=== PATIENT | female | born 1985 | race Two or more races ===

== ENCOUNTER 2016-12-07 20:10 | Emergency (ER) | payer OTHER ==
[~2016-12-07] VITALS: Ht 147.3 cm; Wt 63.5 kg
[2016-12-07] MEDS ORDERED: AMOX1TAB61 PO (20:48)
[2016-12-07] MEDS ORDERED: ONDA4TAB10 SL (20:49)
--- NOTE | 2016-12-07 20:49 | PHYS DOC ---
Past Medical History Past Medical History: Anxiety, Other Additional Past Medical Histor: "kidney infection" Past Surgical History: Other Additional Past Surgical Histo: abcess to left buttock Alcohol Use: Rarely Drug Use: Marijuana Adult General Chief Complaint Chief Complaint: MULTIPLE COMPLAINTS HPI HPI Patient is a 31 year old female who is breast-feeding, complains of onset today of left breast redness, pain, swelling, with fever, and headache. Some nausea, no vomiting. Patient does not believe that she is . She is breast-feeding an 9-month-old. Today after her symptoms began, she tried pumping and expressing, warm compresses, Tylenol and ibuprofen. Her symptoms are not improving. No known allergies. Review of Systems Review of Systems Constitutional: Fever to 102 Eyes: Denies change in visual acuity, redness, or eye pain [] HENT: Denies nasal congestion or sore throat , with headache she has had some right ear pain Respiratory: Denies cough or shortness of breath [] GI: Nausea but no vomiting : Denies dysuria or hematuria [] Current Medications Current Medications Current Medications Medications (Trade) Dose Ordered Sig/Yasmany Start Time Stop Time Status Last Admin Dose Admin Amoxicillin/ Clavulanate Potassium (Augmentin 875/ 125mg) 1 tab 1X ONCE 12/07/16 21:00 12/07/16 21:01 UNV Allergies Allergies Allergies Coded Allergies Type Severity Reaction Last Updated Verified No Known Allergies Allergy Unknown 10/17/15 Yes Physical Exam Physical Exam Constitutional: Well developed, well nourished, no acute distress, non-toxic appearance. [] HENT: Normocephalic, atraumatic, bilateral external ears normal, nose normal. Right external ear, EAC, and TM normal. Eyes: conjunctiva normal, no discharge. [] Neck: Normal range of motion, no stridor. [] Cardiovascular:Heart rate regular rhythm, no murmur [] Lungs & Thorax: Bilateral breath sounds clear to auscultation [] Left breast: Breast is not engorged. There is an area on the lateral breast of erythema, warmth. Consistent with mastitis. Skin: Warm, dry, no erythema, no rash. [] Back: No tenderness, no CVA tenderness. [] Extremities: No tenderness, no cyanosis, no clubbing, ROM intact, no edema. [] Neurologic: Alert and oriented X 3, normal motor function, normal sensory function, no focal deficits noted. [] Current Patient Data Vital Signs Vital Signs Date Time Temp Pulse Resp B/P (MAP) Pulse Ox O2 Delivery O2 Flow Rate FiO2 12/07/16 20:17 98.6 93 18 111/68 (82) 99 98.6 Lab Values Laboratory Tests Test 12/07/16 19:26 POC Urine HCG, Qualitative Hcg negative (Negative) EKG EKG [] Radiology/Procedures Radiology/Procedures [] Course & Med Decision Making Course & Med Decision Making Pertinent Labs and Imaging studies reviewed. (See chart for details) 31-year-old female who is breast-feeding presents with one day of mastitis of the left breast. She is nontoxic and I believe appropriate for outpatient antibiotics. She was given her first dose in the ED. See instructions for plan. [] Dragon Disclaimer Dragon Disclaimer This electronic medical record was generated, in whole or in part, using a voice recognition dictation system. Departure Departure Impression: Primary Impression: Mastitis, left, acute Disposition: HOME, SELF-CARE Condition: STABLE Referrals: NO PCP (PCP) Patient Instructions: , Mastitis, Mastitis, [id number] Additional Instructions: Keep your breasts from becoming engorged by nursing and pumping as necessary. Warm compresses to the area of pain and redness. Ibuprofen 800 mg every 6-8 hours, acetaminophen 1000 mg every 6-8 hours, as needed for pain and fever. You may combine these medications if needed. Augmentin, antibiotic, as ordered. Take every 12 hours. Scripts Ondansetron (ZOFRAN ODT) 4 Mg Tab.rapdis 1 TAB SL Q8HRS for NAUSEA, #10 TAB Prov: CHAPIN PHILIPPE MD 12/07/16 Amoxicillin/Potassium Clav (AUGMENTIN 875-125 TABLET) 1 Each Tablet 1 TAB PO BID for mastitis, #20 TAB Prov: CHAPIN PHILIPPE MD 12/07/16 CHAPIN PHILIPPE MD Dec 07, 2016 20:49
[2016-12-07 21:00] VITALS: BP 91/49
[2016-12-07] MEDS ORDERED: AMOXICILLIN/K CLAV 875/125MG TABLET. PO ONE (21:00)
== END 2016-12-07 21:15 | disposition home or self-care (01) ==
LOC: ER 20:10
DX: N61.0 Mastitis without abscess (principal); R51 Headache; F12.10 Cannabis abuse, uncomplicated
CPT/HCPCS: 81025; 99284

== ENCOUNTER 2017-10-14 17:08 | Emergency (ER) | payer OTHER ==
[2017-10-14 17:36] LABS: BILIRUBIN,URINE NEGATIVE (NEG); CLARITY,URINE CLOUDY; COLOR,URINE YELLOW; GLUCOSE,URINE NEGATIVE (NEG); NITRITE,URINE NEGATIVE (NEG); PROTEIN,URINE NEGATIVE (NEG-TRACE)
[2017-10-14 17:38] LABS: URINE HCG POC Borderline hCG level (Negative)
[2017-10-14 17:43] LABS: BACTERIA,URINE 0 /HPF (0-FEW); SQUAMOUS EPITHELIAL CELL,UR MOD /LPF; WBC,URINE RARE /HPF (0-4)
[2017-10-14 18:05] LABS: ADD MAN DIFF? NO
[2017-10-14 18:06] LABS: BASO # 0.1 x10^3/uL (0.0-0.2); BASO % 1 % (0-3); EOS # 0.4 x10^3/uL (0.0-0.7); EOS % 4 % (0-3); HEMATOCRIT 39.5 % (36.0-47.0); HEMOGLOBIN 13.7 g/dL (12.0-15.5); LYMPH # 2.9 x10^3/uL (1.0-4.8); LYMPH % 30 % (24-48); MEAN CORPUSCULAR HEMOGLOBIN 31 pg (25-35); MEAN CORPUSCULAR HGB CONC 35 g/dL (31-37); MEAN CORPUSCULAR VOLUME 89 fL (79-100); MONO # 0.6 x10^3/uL (0.0-1.1); MONO % 6 % (0-9); NEUT # 5.9 x10^3uL (1.8-7.7); NEUT % 60 % (31-73); PLATELET COUNT 305 x10^3/uL (140-400); RED BLOOD COUNT 4.46 x10^6/uL (3.50-5.40); RED CELL DISTRIBUTION WIDTH 13.2 % (11.5-14.5); WHITE BLOOD COUNT 9.9 x10^3/uL (4.0-11.0)
[2017-10-14 18:13] LABS: ANION GAP 8 (6-14); BLOOD UREA NITROGEN 9 mg/dL (7-20); BUN/CREATININE RATIO 18 (6-20); CALCIUM 8.7 mg/dL (8.5-10.1); CARBON DIOXIDE 28 mmol/L (21-32); CHLORIDE 102 mmol/L (98-107); CREATININE 0.5 mg/dL (0.6-1.0); GLUCOSE 76 mg/dL (70-99); POTASSIUM 3.3 mmol/L (3.5-5.1); SODIUM 138 mmol/L (136-145)
[2017-10-14 18:20] LABS: ALBUMIN 3.8 g/dL (3.4-5.0); ALBUMIN/GLOBULIN RATIO 0.9 (1.0-1.7); ALK PHOS 92 U/L (46-116); ALT (SGPT) 20 U/L (14-59); AST (SGOT) 15 U/L (15-37); TOTAL BILIRUBIN 0.3 mg/dL (0.2-1.0); TOTAL PROTEIN 8.2 g/dL (6.4-8.2)
[2017-10-15 13:23] LABS: CHLAMYDIA PROBE Negative (Negative); GC PROBE Negative (Negative)
== END 2017-10-14 20:00 | disposition home or self-care (01) ==
LOC: ER 20:00
DX: O20.0 Threatened abortion (principal); Z3A.01 Less than 8 weeks gestation of pregnancy
CPT/HCPCS: 36415; 76801; 76817; 80053; 81001; 81025; 84702; 85025; 86850; 86900; 86901; 87491; 87591; 99285-25; Q0111

== ENCOUNTER 2017-10-18 16:39 | Emergency (ER) | payer OTHER ==
[2017-10-18] MEDS: HYDROcodone/APAP 7.5/325MG 1 TAB TABLET PO (17:40)
[2017-10-18] MEDS: KETOROLAC 60 MG/2 ML INJ. IM (19:10)
[2017-10-18] MEDS: MORPHINE SULFATE 10 MG/ML VIAL. IM (19:11)
== END 2017-10-18 19:58 | disposition home or self-care (01) ==
LOC: ER 16:39
DX: O03.9 Complete or unspecified spontaneous abortion without complication (principal)
CPT/HCPCS: 36415; 76817; 84702; 96372; 99285-25; J1885; J2270

== ENCOUNTER 2018-08-13 11:13 | Emergency (ER) | payer OTHER ==
[~2018-08-13] VITALS: Ht 147.3 cm; Wt 52.2 kg
[~2018-08-13 11:13] MED LIST: AMOX1TAB61 PO; ONDA4TAB10 SL; ONDA4TAB7 PO; OXYC1TAB15 PO
[2018-08-13 11:18] VITALS: BP 99/51
[2018-08-13] MEDS ORDERED: NAPROXEN 500 MG TABLET PO STA (11:31)
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
[2018-08-13] MEDS ORDERED: HYDROcodone/APAP 5/325MG 1 TAB TABLET PO ONE (12:00)
[2018-08-13] MEDS ORDERED: predniSONE 20 MG TABLET PO ONE (12:00)
[2018-08-13] MEDS ORDERED: CYCLOBENZAPRINE 10 MG TABLET. PO ONE (12:00)
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
[2018-08-13] MEDS ORDERED: DICL50TA4 PO (12:47)
[2018-08-13] MEDS ORDERED: METH4TAB2 PO (12:47)
[2018-08-13] MEDS ORDERED: CYCL10TA2 PO (12:47)
== END 2018-08-13 12:57 | disposition home or self-care (01) ==
LOC: ER 11:13
DX: S16.1XXA Strain of muscle, fascia and tendon at neck level, initial encounter (principal); M54.5 Low back pain; F41.9 Anxiety disorder, unspecified; V43.52XA Car driver injured in collision with other type car in traffic accident, initial encounter; Y93.89 Activity, other specified; Y92.410 Unspecified street and highway as the place of occurrence of the external cause; Y99.8 Other external cause status
CPT/HCPCS: 72125; 72131; 99284; J7512

== ENCOUNTER 2019-08-23 14:35 | Emergency (ER) | payer OTHER ==
[~2019-08-23] VITALS: Ht 149.9 cm; Wt 51.8 kg
[~2019-08-23 14:35] MED LIST changes: +CYCL10TA2 PO; +DICL50TA4 PO; +METH4TAB2 PO
[2019-08-23] MEDS ORDERED: methylPREDNISolone SOD SUCC PF 125 MG/2 ML VIAL. IV ONE (15:00)
[2019-08-23] MEDS ORDERED: PROCHLORPERAZINE 10 MG/2 ML VIAL. IV ONE (15:00)
[2019-08-23] MEDS ORDERED: ACETAMINOPHEN 500 MG TABLET PO ONE (15:00)
[2019-08-23] MEDS ORDERED: IV NORMAL SALINE 1000ML BAG 1,000 ML IV ONE (15:00)
[2019-08-23 15:06] VITALS: BP 111/70
[2019-08-23 15:14] LABS: BASO # 0.1 x10^3/uL (0.0-0.2); BASO % 1 % (0-3); EOS # 0.2 x10^3/uL (0.0-0.7); EOS % 3 % (0-3); HEMATOCRIT 39.9 % (36.0-47.0); HEMOGLOBIN 13.4 g/dL (12.0-15.5); LYMPH # 2.6 x10^3/uL (1.0-4.8); LYMPH % 31 % (24-48); MEAN CORPUSCULAR HEMOGLOBIN 29 pg (25-35); MEAN CORPUSCULAR HGB CONC 34 g/dL (31-37); MEAN CORPUSCULAR VOLUME 88 fL (79-100); MONO # 0.6 x10^3/uL (0.0-1.1); MONO % 7 % (0-9); NEUT # 4.7 x10^3/uL (1.8-7.7); NEUT % 58 % (31-73); PLATELET COUNT 275 x10^3/uL (140-400); RED BLOOD COUNT 4.54 x10^6/uL (3.50-5.40); RED CELL DISTRIBUTION WIDTH 13.3 % (11.5-14.5); WHITE BLOOD COUNT 8.2 x10^3/uL (4.0-11.0)
[2019-08-23 15:15] LABS: BILIRUBIN,URINE NEGATIVE (NEG); CLARITY,URINE CLEAR; COLOR,URINE YELLOW; NITRITE,URINE NEGATIVE (NEG); PROTEIN,URINE NEGATIVE (NEG-TRACE)
[2019-08-23 15:22] LABS: CALCIUM 9.1 mg/dL (8.5-10.1); CREATININE 0.8 mg/dL (0.6-1.0); GFR 82.1; POTASSIUM 3.7 mmol/L (3.5-5.1)
[2019-08-23 15:28] LABS: ALBUMIN 3.7 g/dL (3.4-5.0); ALBUMIN/GLOBULIN RATIO 0.9 (1.0-1.7); TOTAL BILIRUBIN 0.3 mg/dL (0.2-1.0); TOTAL PROTEIN 7.6 g/dL (6.4-8.2)
[2019-08-23 15:30] LABS: BACTERIA,URINE FEW /HPF (0-FEW); RBC,URINE OCC /HPF (0-2); SQUAMOUS EPITHELIAL CELL,UR MOD /LPF; WBC,URINE OCC /HPF (0-4)
--- NOTE | 2019-08-23 15:51 | PHYS DOC ---
Past Medical History Past Medical History: Kidney Infection Additional Past Medical Histor: miscarriages Past Surgical History: Other Additional Past Surgical Histo: abcess to left buttock Smoking Status: Former Smoker Alcohol Use: Sober Drug Use: None General Adult EDM: Chief Complaint: HEADACHE HPI: HPI: Patient is a 34 year old female 11 para 2, 7 miscarriages, 1 , currently 4-1/2 weeks who presents the ED today complaining of a headache intermittently for 1 week. Patient reports the headache is behind her eyes. She is also complaining of nausea, photophobia and noise sensitivity with the headache. Patient denies any vaginal bleeding. Denies any fever, denies any neck or rigidity. She states she took [id number]-[id number] remedies with no relief. Patient denies this being the worst headache in her life. Review of Systems: Review of Systems: Constitutional: Denies fever or chills. [] Eyes: Denies change in visual acuity. [] HENT: Denies nasal congestion or sore throat. [] Respiratory: Denies cough or shortness of breath. [] Cardiovascular: Denies chest pain or edema. [] GI: Denies abdominal pain, nausea, vomiting, bloody stools or diarrhea. [] : Denies dysuria. [] Musculoskeletal: Denies back pain or joint pain. [] Integument: Denies rash. [] Neurologic: Reports headache, denies focal weakness or sensory changes. [] Endocrine: Denies polyuria or polydipsia. [] Lymphatic: Denies swollen glands. [] Psychiatric: Denies depression or anxiety. [] Heart Score: Risk Factors: Risk Factors: DM, Current or recent (<one month) smoker, HTN, HLP, family history of CAD, obesity. Risk Scores: Score 0 - 3: 2.5% MACE over next 6 weeks - Discharge Home Score 4 - 6: 20.3% MACE over next 6 weeks - Admit for Clinical Observation Score 7 - 10: 72.7% MACE over next 6 weeks - Early Invasive Strategies Current Medications: Current Medications Medications (Trade) Dose Ordered Sig/Yasmany Start Time Stop Time Status Last Admin Dose Admin Acetaminophen (Tylenol) 1,000 mg 1X ONCE 08/23/19 15:00 08/23/19 15:01 DC 08/23/19 15:14 1,000 MG Methylprednisolone Sodium Succinate (SOLU-Medrol 125MG VIAL) 125 mg 1X ONCE 08/23/19 15:00 08/23/19 15:01 DC 08/23/19 15:17 125 MG Prochlorperazine Edisylate (Compazine) 10 mg 1X ONCE 08/23/19 15:00 08/23/19 15:01 DC 08/23/19 15:17 10 MG Sodium Chloride 1,000 ml @ 1,000 mls/hr 1X ONCE 08/23/19 15:00 08/23/19 15:59 08/23/19 15:15 1,000 MLS/HR Allergies: Allergies: Allergies Coded Allergies Type Severity Reaction Last Updated Verified No Known Allergies Allergy Unknown 10/17/15 Yes Physical Exam: PE: Constitutional: Well developed, well nourished, no acute distress, non-toxic kamilla earance. [] HENT: Normocephalic, atraumatic, bilateral external ears normal, oropharynx moist, no oral exudates, nose normal. [] Eyes: PERRLA, EOMI, conjunctiva normal, no discharge. [] Neck: Normal range of motion, no tenderness, supple, no stridor. [] Cardiovascular:Heart rate regular rhythm, no murmur [] Lungs & Thorax: Bilateral breath sounds clear to auscultation [] Abdomen: Bowel sounds normal, soft, no tenderness, no masses, no pulsatile masses. [] Skin: Warm, dry, no erythema, no rash. [] Back: No tenderness, no CVA tenderness. [] Extremities: No tenderness, no cyanosis, no clubbing, ROM intact, no edema. [] Neurologic: Alert and oriented X 3, normal motor function, normal sensory function, no focal deficits noted. Cranial nerves II through XII intact Psychologic: Affect normal, judgement normal, mood normal. [] Current Patient Data: Labs: Laboratory Tests Test 08/23/19 15:00 08/23/19 15:09 White Blood Count 8.2 x10^3/uL (4.0-11.0) Red Blood Count 4.54 x10^6/uL (3.50-5.40) Hemoglobin 13.4 g/dL (12.0-15.5) Hematocrit 39.9 % (36.0-47.0) Mean Corpuscular Volume 88 fL (79-100) Mean Corpuscular Hemoglobin 29 pg (25-35) Mean Corpuscular Hemoglobin Concent 34 g/dL (31-37) Red Cell Distribution Width 13.3 % (11.5-14.5) Platelet Count 275 x10^3/uL (140-400) Neutrophils (%) (Auto) 58 % (31-73) Lymphocytes (%) (Auto) 31 % (24-48) Monocytes (%) (Auto) 7 % (0-9) Eosinophils (%) (Auto) 3 % (0-3) Basophils (%) (Auto) 1 % (0-3) Neutrophils # (Auto) 4.7 x10^3/uL (1.8-7.7) Lymphocytes # (Auto) 2.6 x10^3/uL (1.0-4.8) Monocytes # (Auto) 0.6 x10^3/uL (0.0-1.1) Eosinophils # (Auto) 0.2 x10^3/uL (0.0-0.7) Basophils # (Auto) 0.1 x10^3/uL (0.0-0.2) Urine Collection Type Unknown Urine Color Yellow Urine Clarity Clear Urine pH 7.0 (<5.0-8.0) Urine Specific [place] 1.010 (1.000-1.030) Urine Protein Negative mg/dL (NEG-TRACE) Urine Glucose (UA) Negative mg/dL (NEG) Urine Ketones (Stick) Negative mg/dL (NEG) Urine Blood Negative (NEG) Urine Nitrite Negative (NEG) Urine Bilirubin Negative (NEG) Urine Urobilinogen Dipstick 1.0 mg/dL (0.2 mg/dL) Urine Leukocyte Esterase Negative (NEG) Urine RBC Occ /HPF (0-2) Urine WBC Occ /HPF (0-4) Urine Squamous Epithelial Cells Mod /LPF Urine Bacteria Few /HPF (0-FEW) Sodium Level 140 mmol/L (136-145) Potassium Level 3.7 mmol/L (3.5-5.1) Chloride Level 102 mmol/L (98-107) Carbon Dioxide Level 27 mmol/L (21-32) Anion Gap 11 (6-14) Blood Urea Nitrogen 11 mg/dL (7-20) Creatinine 0.8 mg/dL (0.6-1.0) Estimated GFR (Cockcroft-Gault) 82.1 BUN/Creatinine Ratio 14 (6-20) Glucose Level 82 mg/dL (70-99) Calcium Level 9.1 mg/dL (8.5-10.1) Total Bilirubin 0.3 mg/dL (0.2-1.0) Aspartate Amino Transferase (AST) 14 U/L (15-37) L Alanine Aminotransferase (ALT) 17 U/L (14-59) Alkaline Phosphatase 63 U/L (46-116) Total Protein 7.6 g/dL (6.4-8.2) Albumin 3.7 g/dL (3.4-5.0) Albumin/Globulin Ratio 0.9 (1.0-1.7) L POC Urine HCG, Qualitative Hcg positive (Negative) Laboratory Tests 08/23/19 15:00 Laboratory Tests 08/23/19 15:00 Vital Signs: Vital Signs Date Time Temp Pulse Resp B/P (MAP) Pulse Ox O2 Delivery O2 Flow Rate FiO2 08/23/19 14:42 98.0 84 12 124/58 (80) 98 Room Air 98.0 EKG: EKG: [] Radiology/Procedures: Radiology/Procedures: [] Course & Med Decision Making: Course & Med Decision Making Pertinent Labs and Imaging studies reviewed. (See chart for details) This is a 34-year-old female patient currently 4 and half weeks presenting to the ED today complaining of a headache intermittently for week. Also complaining of nausea, photosensitivity with a headache. Denies this being the worst headache in her life. CBC, CMP-no acute findings. Urine analysis negative for infection UDS is negative Patient was given 1 L of IV fluids Solu-Medrol and Compazine symptoms are better. F/u with OBGYN in the course of this week Dragon Disclaimer: Dragon Disclaimer: This electronic medical record was generated, in whole or in part, using a voice recognition dictation system. Departure Departure Impression: Primary Impression: Migraine headache Qualified Codes: G43.009 - Migraine without aura, not intractable, without status migrainosus Disposition: HOME, SELF-CARE Condition: STABLE Referrals: NO PCP (PCP) VELMA BENAVIDES Jr, MD follow up in 1 week Patient Instructions: Migraine Headache, [id number] Additional Instructions: You were evaluated in the emergency room for migraine headache in . Please stay hydrated. Take the prescribed medications as ordered. Follow-up with your own doctor in 1 week or the provided OBGYN Scripts Prochlorperazine Maleate (Compazine) 10 Mg Tablet 1 TAB PO Q6HRS, #21 TAB 0 Refills Prov: SLAVA RICHTER APRN 08/23/19 SLAVA RICHTER APRN Aug 23, 2019 15:51
[2019-08-23 15:55] LABS: BARBITURATES NEG (NEG); BENZODIAZEPINES NEG (NEG); CANNABINOIDS NEG (NEG); COCAINE NEG (NEG); METHADONE NEG (NEG); OPIATES NEG (NEG); PHENCYCLIDINE NEG (NEG)
[2019-08-23 15:56] LABS: AMPHETAMINE/METHAMPHETAMINE NEG (NEG)
[2019-08-23] MEDS ORDERED: PROC10TA57 PO (16:13)
== END 2019-08-23 16:51 | disposition home or self-care (01) ==
LOC: ER 14:35
DX: O29.41 Spinal and epidural anesthesia induced headache during pregnancy, first trimester (principal); G43.909 Migraine, unspecified, not intractable, without status migrainosus; H53.149 Visual discomfort, unspecified; N15.9 Renal tubulo-interstitial disease, unspecified; Z98.890 Other specified postprocedural states; Z87.891 Personal history of nicotine dependence; Z3A.01 Less than 8 weeks gestation of pregnancy
CPT/HCPCS: 36415; 80053; 80307; 81001; 81025; 85025; 96374; 96375; 99284; J0780; J2930; J7030

== ENCOUNTER 2019-09-06 21:53 | Emergency (ER) | payer SELFPAY ==
[~2019-09-06] VITALS: Ht 149.9 cm; Wt 52.2 kg
[~2019-09-06 21:53] MED LIST changes: +PROC10TA57 PO
[2019-09-06 22:16] LABS: BILIRUBIN,URINE NEGATIVE (NEG); CLARITY,URINE CLEAR; COLOR,URINE YELLOW; NITRITE,URINE NEGATIVE (NEG); PROTEIN,URINE NEGATIVE (NEG-TRACE)
--- NOTE | 2019-09-06 22:19 | PHYS DOC ---
Past Medical History Past Medical History: Kidney Infection Additional Past Medical Histor: miscarriages Past Surgical History: Other Additional Past Surgical Histo: abcess to left buttock Smoking Status: Former Smoker Alcohol Use: Sober Drug Use: None General Adult EDM: Chief Complaint: FLANK PAIN HPI: HPI: 34-year-old female who a6 who is approximate 6 weeks presents with a chief complaint of left flank pain. Patient states pain started around 1400 hrs. sudden onset. Pain in left flank with radiation to left pelvic region. Patient also states she has had urinary frequency but denies any dysuria or vaginal bleeding, nausea or vomiting. Patient states she's had similar pain in the past related to a kidney infection. Patient took ibuprofen this afternoon wi th no relief. Review of Systems: Review of Systems: Constitutional: Denies fever or chills. [] Eyes: Denies change in visual acuity. [] HENT: Denies nasal congestion or sore throat. [] Respiratory: Denies cough or shortness of breath. [] Cardiovascular: Denies chest pain or edema. [] GI: Denies abdominal pain, nausea, vomiting, bloody stools or diarrhea. [] : Denies dysuria. [Positive flank pain} positive pelvic pain, No vaginal discharge, No vaginal bleeding Musculoskeletal: Denies r joint pain. [positive back pain] Integument: Denies rash. [] Neurologic: Denies headache, focal weakness or sensory changes. [] Endocrine: Denies polyuria or polydipsia. [] Lymphatic: Denies swollen glands. [] Psychiatric: Denies depression or anxiety. [] Heart Score: Risk Factors: Risk Factors: DM, Current or recent (<one month) smoker, HTN, HLP, family history of CAD, obesity. Risk Scores: Score 0 - 3: 2.5% MACE over next 6 weeks - Discharge Home Score 4 - 6: 20.3% MACE over next 6 weeks - Admit for Clinical Observation Score 7 - 10: 72.7% MACE over next 6 weeks - Early Invasive Strategies Allergies: Allergies: Allergies Coded Allergies Type Severity Reaction Last Updated Verified No Known Allergies Allergy Unknown 10/17/15 Yes Physical Exam: PE: Constitutional: Well developed, well nourished, no acute distress, non-toxic appearance. [appears mildly uncomfortable] HENT: Normocephalic, atraumatic, bilateral external ears normal, oropharynx moist, no oral exudates, nose normal. [] Eyes: PERRLA, EOMI, conjunctiva normal, no discharge. [] Neck: Normal range of motion, no tenderness, supple, no stridor. [] Cardiovascular:Heart rate regular rhythm, no murmur [] Lungs & Thorax: Bilateral breath sounds clear to auscultation [] Abdomen: Bowel sounds normal, soft, no tenderness, no masses, no pulsatile masses. [] Skin: Warm, dry, no erythema, no rash. [] Back: No tenderness, no CVA tenderness. [] Extremities: No tenderness, no cyanosis, no clubbing, ROM intact, no edema. [] Neurologic: Alert and oriented X 3, normal motor function, normal sensory function, no focal deficits noted. [] Psychologic: Affect normal, judgement normal, mood normal. [] Current Patient Data: Labs: Laboratory Tests Test 09/06/19 22:09 POC Urine HCG, Qualitative Hcg positive (Negative) EKG: EKG: [] Radiology/Procedures: Radiology/Procedures: [] Course & Med Decision Making: Course & Med Decision Making Pertinent Labs and Imaging studies reviewed. (See chart for details) []Patient was evaluated for chief complaint. Workup consisted of laboratory analysis and radiologic imaging. Results reviewed and discussed with patient patient was found have a potassium 2.8. Patient was treated with 40 mEq by ronda th. Patient will be discharged home in prescription potassium. Patient's pain was treated with Kevil with improvement. Patient had ultrasound of the pelvis which showed an IUP approximate 6 weeks. No ectopic no ovarian torsion. Patient will be discharged home with potassium and Kevil and Macrobid. Patient advised to continue vitamins follow up with OB or primary care physician. Latricia Disclaimer: Latricia Disclaimer: This electronic medical record was generated, in whole or in part, using a voice recognition dictation system. Departure Departure Impression: Primary Impression: Flank pain Additional Impressions: Hypokalemia UTI (urinary tract infection) Disposition: HOME, SELF-CARE Condition: STABLE Referrals: NO PCP (PCP) Patient Instructions: Back Pain in , Flank Pain, Hypokalemia, Urinary Tract Infection Scripts Hydrocodone/Apap 5-325 (NORCO 5-325 TABLET) 1 Each Tablet 1 TAB PO TID, #10 TAB Prov: JUVENAL BRUCE DO 09/07/19 Potassium Chloride (Potassium Chloride) 20 Meq Tablet.er 40 MEQ PO 1X for 7 Days, #7 TAB.SR Prov: JUVENAL BRUCE DO 09/07/19 Nitrofurantoin Monohyd/M-Cryst (MACROBID 100 MG CAPSULE) 100 Mg Capsule 1 CAP PO BID for 5 Days, #10 CAP 0 Refills Prov: JUVENAL BRUCE DO 09/07/19 JUVENAL BRUCE DO Sep 06, 2019 22:19
[2019-09-06] MEDS ORDERED: HYDROcodone/APAP 5/325MG 1 TAB TABLET PO ONE (22:30)
[2019-09-06 22:38] LABS: BACTERIA,URINE MANY /HPF (0-FEW); SQUAMOUS EPITHELIAL CELL,UR FEW /LPF
[2019-09-06 23:21] LABS: BASO % 1 % (0-3); EOS # 0.1 x10^3/uL (0.0-0.7); EOS % 1 % (0-3); HEMATOCRIT 39.3 % (36.0-47.0); HEMOGLOBIN 13.2 g/dL (12.0-15.5); LYMPH # 2.1 x10^3/uL (1.0-4.8); LYMPH % 28 % (24-48); MEAN CORPUSCULAR HEMOGLOBIN 30 pg (25-35); MEAN CORPUSCULAR HGB CONC 34 g/dL (31-37); MEAN CORPUSCULAR VOLUME 88 fL (79-100); MONO # 0.6 x10^3/uL (0.0-1.1); MONO % 8 % (0-9); NEUT # 4.5 x10^3/uL (1.8-7.7); NEUT % 62 % (31-73); PLATELET COUNT 272 x10^3/uL (140-400); RED BLOOD COUNT 4.46 x10^6/uL (3.50-5.40); RED CELL DISTRIBUTION WIDTH 14.2 % (11.5-14.5); WHITE BLOOD COUNT 7.4 x10^3/uL (4.0-11.0)
[2019-09-07 00:01] VITALS: BP 121/74
--- NOTE | 2019-09-07 00:14 | RAD ---
Study: US OB TRANSVAG DATE: 09/06/2019 10:59 PM INDICATION: Pelvic pain in the setting of a known . COMPARISON: 10/18/2017 TECHNIQUE: Transvaginal ultrasonography of the pelvis was performed. Color Doppler and duplex were utilized as appropriate. FINDINGS: The uterus measures 10 x 5.8 x 5.3 cm. Intrauterine gestational sac measuring 1.96 x 1.50 x 1.45 cm. Yolk sac measures 0.37 cm. heart rate measures 119 bpm. Small pole measured at 0.29 cm for an estimated gestational age of 5 weeks 6 days. Gestational sac morphology and the volume of amniotic fluid is within the broad range of normal. The left ovary measures 3 x 1.6 x 1.5 cm and the right ovary 2.7 x 1.9 x 1.6 cm. Normal Doppler flow is maintained to both ovaries. No free fluid seen within the deep pelvis. IMPRESSION: 1. Single live intrauterine with an estimated gestational age by ultrasound of 5 weeks 6 days. No complicating features. 2. Unremarkable right and left ovaries. No free fluid seen within the pelvis. Electronically signed by: JACK PRAKASH MD (09/07/2019 12:11 AM) [id number]
[2019-09-07 00:22] LABS: ALBUMIN 3.7 g/dL (3.4-5.0); ALBUMIN/GLOBULIN RATIO 1.1 (1.0-1.7); CALCIUM 8.9 mg/dL (8.5-10.1); CREATININE 0.7 mg/dL (0.6-1.0); GFR 95.8; TOTAL BILIRUBIN 0.8 mg/dL (0.2-1.0); TOTAL PROTEIN 7.2 g/dL (6.4-8.2)
[2019-09-07 00:28] LABS: POTASSIUM 2.8 mmol/L (3.5-5.1)
[2019-09-07] MEDS ORDERED: POTASSIUM CHLORIDE 20 MEQ TABLET.ER. PO ONE (00:45)
[2019-09-07] MEDS ORDERED: NITR100C62 PO (00:49)
[2019-09-07] MEDS ORDERED: POTA20TA83 PO (00:49)
[2019-09-07] MEDS ORDERED: HYDR-3164 PO (00:49)
== END 2019-09-07 00:59 | disposition home or self-care (01) ==
LOC: ER 21:53
DX: O23.41 Unspecified infection of urinary tract in pregnancy, first trimester (principal); E87.6 Hypokalemia; R10.9 Unspecified abdominal pain; N15.9 Renal tubulo-interstitial disease, unspecified; Z87.891 Personal history of nicotine dependence; Z98.890 Other specified postprocedural states
CPT/HCPCS: 36415; 76817; 80053; 81001; 81025; 84702; 85025; 87086; 99284

== ENCOUNTER 2020-01-17 19:39 | Observation (INO) | payer OTHER ==
[~2020-01-17 19:39] MED LIST changes: +HYDR-3164 PO; +NITR100C62 PO; +POTA-163 PO
[2020-01-17] MEDS ORDERED: IV RINGERS,LACTATED 1000ML 1,000 ML IV SCH (19:40)
[2020-01-17 20:04] LABS: BILIRUBIN,URINE NEGATIVE (NEG); CLARITY,URINE CLEAR; COLOR,URINE YELLOW; NITRITE,URINE NEGATIVE (NEG); PROTEIN,URINE NEGATIVE (NEG-TRACE)
[2020-01-17 20:13] LABS: AMPHETAMINE/METHAMPHETAMINE POS (NEG); BACTERIA,URINE MODERATE /HPF (0-FEW); BARBITURATES NEG (NEG); BENZODIAZEPINES NEG (NEG); CANNABINOIDS NEG (NEG); COCAINE NEG (NEG); METHADONE NEG (NEG); OPIATES NEG (NEG); PHENCYCLIDINE NEG (NEG); RBC,URINE OCC /HPF (0-2); SQUAMOUS EPITHELIAL CELL,UR MANY /LPF
[2020-01-17] MEDS ORDERED: hydrOXYzine IM 50 MG/ML VIAL IM ONE (20:45)
[2020-01-17] MEDS ORDERED: hydrOXYzine 25 MG TABLET PO ONE (21:00)
== END 2020-01-17 21:50 | disposition home or self-care (01) ==
LOC: 3 SO LND 19:39
PROVIDERS: ADMIT Obstetrics & Gynecology; ATTEND Obstetrics & Gynecology
DX: O26.892 Other specified pregnancy related conditions, second trimester (principal); R10.30 Lower abdominal pain, unspecified; O99.89 Other specified diseases and conditions complicating pregnancy, childbirth and the puerperium; M54.9 Dorsalgia, unspecified; Z3A.25 25 weeks gestation of pregnancy; Z79.899 Other long term (current) drug therapy
CPT/HCPCS: 80307; 81001; 87086; G0378; G0379

== ENCOUNTER 2021-06-16 15:45 | Inpatient (IN) | payer OTHER ==
[~2021-06-16] VITALS: Ht 147.3 cm; Wt 54.8 kg
[~2021-06-16 15:45] MED LIST changes: +CYCL10TA19 PO; -CYCL10TA2 PO
[2021-06-16] MEDS ORDERED: TETRACAINE 0.5% OPHTH SOLUTION 4ML BOTTLE. OU ONE (16:30)
[2021-06-16 17:11] LABS: BASO # 0.1 x10^3/uL (0.0-0.2); BASO % 1 % (0-3); EOS # 0.2 x10^3/uL (0.0-0.7); EOS % 2 % (0-3); HEMATOCRIT 37.2 % (36.0-47.0); HEMOGLOBIN 12.9 g/dL (12.0-15.5); LYMPH # 2.2 x10^3/uL (1.0-4.8); LYMPH % 32 % (24-48); MEAN CORPUSCULAR HEMOGLOBIN 30 pg (25-35); MEAN CORPUSCULAR HGB CONC 35 g/dL (31-37); MEAN CORPUSCULAR VOLUME 86 fL (79-100); MONO # 0.4 x10^3/uL (0.0-1.1); MONO % 6 % (0-9); NEUT # 4.1 x10^3/uL (1.8-7.7); NEUT % 59 % (31-73); PLATELET COUNT 318 x10^3/uL (140-400); RED BLOOD COUNT 4.31 x10^6/uL (3.50-5.40); RED CELL DISTRIBUTION WIDTH 13.5 % (11.5-14.5)
--- NOTE | 2021-06-16 17:14 | PHYS DOC ---
Past Medical History Past Medical History: No Pertinent History, Kidney Infection Additional Past Medical Histor: miscarriages Past Surgical History: Other Additional Past Surgical Histo: abcess to left buttock Smoking Status: Current Every Day Smoker Additional Information: QUIT SMONKING & VAPING 1 MONTH AGO. Alcohol Use: Occasionally Additional Information: PATIENT REPORTS "I'M 9 MONTHS SOBER." Drug Use: None Social History Narrative: "9 MONTHS SOBER" General Adult EDM: Chief Complaint: VISION PROBLEM HPI: HPI: Patient is a 36 year old female presents to the emergency department in [facility] complaining of waking up at approximately 10:00 this morning with painless vision loss to the right eye. Patient does report a "slight headache "stating she has had a headache ever since she was evaluated at [facility] 3 days ago this past Wednesday after having a seizure, falling and striking her head on the ground. Patient states she had "tracers "that she describes as "squiggly lines "across her field of vision that she experienced while she was at [facility] emergency department that seem to spontaneously resolve, she was then discharged back to the [facility]. Patient reports she woke up earlier this morning seeing the same tracer she experienced when she was at [facility], took a nap then woke up at 10:00 this morning with symptoms that brought her to the emergency department today. 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 Patient denies dizziness, denies decreased vision of the left eye however reports she can still see things close. Patient reports she is supposed to wear glasses however does not. Patient states she is currently being treated with an antibiotic for trichomonas, does not take medications for seizures as she reports this past seizure on Wednesday is her fifth seizure she has had since 2009. Patient denies other physical complaints or physical concerns. Review of Systems: Review of Systems: 14 body systems of review of systems have been reviewed. See HPI for pertinent positives and negative responses, otherwise all other systems are negative, nonpertinent or noncontributory. Constitutional: Negative except as outlined in HPI above. Skin: Negative except as outlined in HPI above. Eyes: Negative except as outlined in HPI above. HENT: Negative except as outlined in HPI above. Respiratory: Negative except as outlined in HPI above. Cardiovascular: Negative except as outlined in HPI above. GI: Negative except as outlined in HPI above. : Negative except as outlined in HPI above. Musculoskeletal: Negative except as outlined in HPI above. Integument: Negative except as outlined in HPI above. Neurologic: Negative except as outlined in HPI above. Endocrine: Negative except as outlined in HPI above. Lymphatic: Negative except as outlined in HPI above. Psychiatric: Negative except as outlined in HPI above. Heart Score: C/O Chest Pain: No Risk Factors: Risk Factors: DM, Current or recent (<one month) smoker, HTN, HLP, family history of CAD, obesity. Risk Scores: Score 0 - 3: 2.5% MACE over next 6 weeks - Discharge Home Score 4 - 6: 20.3% MACE over next 6 weeks - Admit for Clinical Observation Score 7 - 10: 72.7% MACE over next 6 weeks - Early Invasive Strategies Current Medications: Current Medications Medications (Trade) Dose Ordered Sig/Yasmany Start Time Stop Time Status Last Admin Dose Admin Tetracaine HCl (Tetracaine) 1 drop 1X ONCE 06/16/21 16:30 06/16/21 16:40 DC 06/16/21 16:49 1 DROP Allergies: Allergies: Allergies Coded Allergies Type Severity Reaction Last Updated Verified No Known Allergies Allergy Unknown 10/17/15 Yes Physical Exam: PE: Constitutional: Well developed, well nourished, no acute distress, non-toxic appearance. 36-year-old female in no apparent distress. Is in shackles and handcuffs per [facility] officer at bedside. HENT: Normocephalic, atraumatic. Eyes: Conjunctiva normal, no discharge. Pupils 4 mm and reactive to light bilaterally, visual acuity: OD/blind, OS 20/200, OU 20/200, positive red light reflex for bedside exam, IOP right eye 17/17, left eye 15/16. No response to confrontation of the right eye during examination. Neck: Normal range of motion, no stridor. Cardiovascular: No cyanosis appreciated, distal cap refill less than 2 seconds. Lungs & Thorax: Patient is in no respiratory distress, no audible adventitious lung sounds appreciated. Abdomen: Nontender, no abnormalities noted. Skin: Warm, dry, no erythema, no rash. Back: No tenderness, no deformities. Extremities: No tenderness, no cyanosis, no clubbing, ROM intact, no edema. Neurologic: Alert and oriented X 3, normal motor function, normal sensory function, no focal deficits noted. Psychologic: Affect normal, judgement normal, mood normal. Current Patient Data: Labs: Laboratory Tests Test 06/16/21 16:43 06/16/21 16:59 POC Urine HCG, Qualitative Hcg negative (Negative) White Blood Count 7.0 x10^3/uL (4.0-11.0) Red Blood Count 4.31 x10^6/uL (3.50-5.40) Hemoglobin 12.9 g/dL (12.0-15.5) Hematocrit 37.2 % (36.0-47.0) Mean Corpuscular Volume 86 fL (79-100) Mean Corpuscular Hemoglobin 30 pg (25-35) Mean Corpuscular Hemoglobin Concent 35 g/dL (31-37) Red Cell Distribution Width 13.5 % (11.5-14.5) Platelet Count 318 x10^3/uL (140-400) Neutrophils (%) (Auto) 59 % (31-73) Lymphocytes (%) (Auto) 32 % (24-48) Monocytes (%) (Auto) 6 % (0-9) Eosinophils (%) (Auto) 2 % (0-3) Basophils (%) (Auto) 1 % (0-3) Neutrophils # (Auto) 4.1 x10^3/uL (1.8-7.7) Lymphocytes # (Auto) 2.2 x10^3/uL (1.0-4.8) Monocytes # (Auto) 0.4 x10^3/uL (0.0-1.1) Eosinophils # (Auto) 0.2 x10^3/uL (0.0-0.7) Basophils # (Auto) 0.1 x10^3/uL (0.0-0.2) Laboratory Tests 06/16/21 16:59 Vital Signs: Vital Signs Date Time Temp Pulse Resp B/P (MAP) Pulse Ox O2 Delivery O2 Flow Rate FiO2 06/16/21 15:53 98.7 80 17 134/84 (101) 100 Room Air 98.7 EKG: EKG: EKG performed at 1646 by ED nursing staff shows a normal sinus rhythm without other ectopy, heart rate 58 bpm, parable 0.188, QT 0.388, no acute STEMI, no ACS, no acute ischemia appreciated, EKG interpreted by ED attending physician Dr. Mcintyre. Radiology/Procedures: Radiology/Procedures: REASON: Acute painless vision loss right eye PROCEDURE: CT HEAD WO CONTRAST CT scan of the head without contrast 06/16/2021 Clinical History: Acute right vision loss. Technique: Unenhanced, contiguous, 5 mm axial sections were obtained through the head. One or more of the following individualized dose reduction techniques were uti lized for this study: 1. Automated exposure control. 2. Adjustment of the mA and/or kV according to patient size. 3. Use of iterative reconstruction technique. Findings: The ventricles and sulci are within normal limits in size and configuration. No area of abnormal attenuation is seen involving the brain parenchyma. No extra-axial fluid collection is noted. No skull fracture is seen. The visualized orbits are within normal limits. A 8mm mucous retention cyst is involving the right maxillary sinus. Impression: No acute intracranial abnormality is seen. Electronically signed by: Alvaro Fernandez MD (06/16/2021 5:14 PM) [id number] Course & Med Decision Making: Course & Med Decision Making Pertinent Labs and Imaging studies reviewed. (See chart for details) 36-year-old female, vital signs reviewed, presents emergency department concerning painless loss of vision of the right eye at approximately 10 AM. Physical examination concerning for retinal artery occlusion of right eye versus retinal detachment of right eye versus other ophthalmologic dyscrasia. Will order CBC, CMP, ESR, CRP, PT/PTT. CT head without contrast. Will consult with ophthalmology. At 1650 discussed patient case and ED work-up with on-call sound ranging crewmember Luis Luna who stated he would be unable to see patient in his office because patient is in PD custody, recommended patient be transferred to ophthalmology. At 1700 called and discussed patient case and ED work-up with transfer triage nurse Hayley kyle states will relay information to ophthalmology on-call and return call for transfer. At 1750 discussed patient case with religion instructor Dr. New who recommended patient be evaluated by neurology, did not accept transfer to [facility]. States will see in consult with neurology excepting transfer. At 1751 placed paged to neurologist on-call. At 1800 discussed patient case and ED work-up with neurologist Dr. Rey who recommended patient be started on high-dose steroid protocol 100 mg x 6 days with decreased to 80 mg x 1, 60 mg x 1, 40 mg x 1, 20 mg x 1. Also recommended patient have outpatient MRI and MRA to evaluate vision loss. Recommended ophthalmology consult. At at 1805 consulted with transfer triage nurse Hayley who states will relay information to on-call neurology specialist at [facility] and will return phone call. At 1830 called and discussed patient case with [facility] transfer line, unable to accept patient in transfer to [facility] facilities At 1845 discussed patient case and ED work-up with [facility] neurologist Dr. Fritz who recommended patient have CTA head and neck and reconsult. At 1945 discussed patient case and ED work-up along with CT a head and neck results with Dr. Fritz who recommends patient be admitted to the hospital for MRI/MRA evaluation related to vision loss. Is unable to accept patient in transfer at at this time. Called and discussed patient case and ED work-up with inpatient management physician Dr. Myles, Dr. Myles accepts patient for admission, requests consult of neurology and ophthalmology, discussed with Dr. Shar Rey's recommendation of steroids. Discussed with patient admission to hospital for ongoing evaluation of vision loss. Upon reevaluation of the patient, patient has no further vision loss, denies pain or discomfort. Patient is amenable to admission planning. Dragon Disclaimer: Dragon Disclaimer: This electronic medical record was generated, in whole or in part, using a voice recognition dictation system. NIHSS Stroke Scale NIH Stroke Scale: NIH Stroke Scale Response (Comments) Value Level of Consciousness: 0 Alert/Responsive 0 LOC Questions: 0 Answers both correctly 0 LOC Commands: 0 Performs both tasks 0 Best Gaze: 0 Normal 0 Visual: 2 Complete hemianopia 2 Facial Palsy: 0 Normal, symmetrical 0 Motor - Left Arm 0 No drift 0 Motor - Right Arm 0 No drift 0 Motor - Left Leg 0 No drift 0 Motor: Right Leg 0 No drift 0 Limb Ataxia: 0 Absent 0 Sensory: 0 No loss 0 Best Language: 0 Normal 0 Dysathria: 0 Normal 0 Extinction and Inattention: 0 Normal 0 Total 2 Departure Departure Impression: Primary Impression: Sudden visual loss, right eye Disposition: ADMITTED INPATIENT Admitting Physician: DEMIAN (Admit to Dr. Myles to medical surgical unit.) Condition: GUARDED Referrals: NO PCP (PCP) ERIKA MCARTHUR APRN Jun 16, 2021 17:14
--- NOTE | 2021-06-16 17:17 | RAD ---
CT scan of the head without contrast 06/16/2021 Clinical History: Acute right vision loss. Technique: Unenhanced, contiguous, 5 mm axial sections were obtained through the head. One or more of the following individualized dose reduction techniques were utilized for this study: 1. Automated exposure control. 2. Adjustment of the mA and/or kV according to patient size. 3. Use of iterative reconstruction technique. Findings: The ventricles and sulci are within normal limits in size and configuration. No area of abn ormal attenuation is seen involving the brain parenchyma. No extra-axial fluid collection is noted. N o skull fracture is seen. The visualized orbits are within normal limits. A 8mm mucous retention cyst is involving the right maxillary sinus. Impression: No acute intracranial abnormality is seen. Electronically signed by: Alvaro Fernandez MD (06/16/2021 5:14 PM) [id number]
[2021-06-16 17:24] LABS: CALCIUM 8.7 mg/dL (8.5-10.1); CREATININE 0.7 mg/dL (0.6-1.0); GFR 94.7; POTASSIUM 3.9 mmol/L (3.5-5.1)
[2021-06-16 17:30] LABS: ALBUMIN 3.8 g/dL (3.4-5.0); ALBUMIN/GLOBULIN RATIO 0.9 (1.0-1.7); C-REACTIVE PROTEIN 2.9 mg/L (0-3.3); TOTAL BILIRUBIN 0.2 mg/dL (0.2-1.0); TOTAL PROTEIN 8.2 g/dL (6.4-8.2)
[2021-06-16] MEDS ORDERED: IOHEXOL 300 MG/ML 100ML VIAL. IV ONE (19:00)
[2021-06-16 19:11] LABS: PROTHROMBIN TIME PATIENT 12.4 SEC (11.7-14.0)
[2021-06-16] MEDS ORDERED: CONTRAST GIVEN. MC PRN (19:15)
--- NOTE | 2021-06-16 19:29 | RAD ---
Exam: CTA head and neck INDICATION: Sudden painless vision loss, right eye TECHNIQUE: Sequential axial images through the head and neck obtained following the administration of 75 mL of Isovue-370 IV contrast. Sagittal and coronal reformatted images were reconstructed from the axial data and reviewed. 3-D reformatted images were reconstructed from the axial data and reviewed. Exposure: One or more of the following in the visualized dose reduction techniques were utilized for this examination: 1. Automated exposure control 2. Adjustment of the MA and/or KV according to patient size 3. Use of iterative of reconstructive technique Comparisons: CT head without contrast same day FINDINGS: CTA NECK: Visual is portions of thoracic aorta are unremarkable. Standard three-vessel arch anatomy. Right common carotid artery is patent without evidence of stenosis, occlusion or aneurysm. Cervical s egment right internal carotid artery is patent without evidence of stenosis, occlusion or aneurysm. Left common carotid artery is patent without evidence of stenosis, occlusion or aneurysm. Cervical se gment of the left internal carotid artery is patent without evidence of stenosis, occlusion or aneury sm. Right vertebral artery is patent to the basilar confluence without evidence of stenosis, occlusion or aneurysm. Left vertebral artery is patent to basilar confluence without evidence of stenosis, occlusion or aneu rysm. Visualized paraspinal soft tissues are unremarkable. CTA HEAD: Intracranial segments of the right internal carotid artery are patent without evidence of stenosis, o cclusion or aneurysm. Right MCA is patent. Right IVANIA is patent. Intracranial segments of the left internal carotid artery are patent without evidence of stenosis, oc clusion or aneurysm. MCA is patent. Left IVANIA is patent. Basilar artery is patent without evidence of stenosis, occlusion or aneurysm. relationship mgr are patent bilater ally. Visualized portions of the dural venous sinuses are patent. IMPRESSION: Patent intracranial and cervical arterial vasculature without evidence of stenosis, occlusion or aneu rysm. Electronically signed by: Rylie Harris MD (06/16/2021 7:27 PM) [facility] H[facility]ITALCHRISTOPHER
[2021-06-16] MEDS ORDERED: predniSONE 20 MG TABLET PO ONE (20:30)
[2021-06-17] MEDS ORDERED: ACETAMINOPHEN 500 MG TABLET PO ONE (04:30)
--- NOTE | 2021-06-17 06:17 | EKG ---
[facility] [address] [place] [address] Test Date: 2021-06-16 Test Time: 16:46:01 Pat Name: FLACO ECHEVERRIA Department: Room: Gender: F Casework Manager: : 1985 Requested By: ERIKA MCARTHUR Order Number: [id number] Reading MD: Measurements Intervals [place] Rate: 58 P: 56 VT: 188 QRS: 66 QRSD: 84 T: 68 QT: 392 QTc: 388 Interpretive Statements SINUS RHYTHM NORMAL ECG RI6.02 No previous ECG available for comparison
--- NOTE | 2021-06-17 08:06 | PDOC1 ---
History and Physical Date of Admission Date of Admission DATE: 06/17/21 TIME: 08:02 Identification/Chief Complaint Chief Complaint Vision loss Source Source: Patient History of Present Illness History of Present Illness Ms Rodriguez is a 36 year old female w/ PMHx seizures presents to the emergency department in [facility] complaining of waking up at approximately 10:00 on 06/16/2021 in the morning with vision loss to the right eye. She does wear glasses at baseline and has been incarcerated since March 2021 and has not had her glasses. She has complained of left frontal and temporal headache since a fall out of her bed on 06/13/2021. She does not recall the circumstances of the fall she remembers just waking up on the floor. She is in a low lying cot in an individual halfway cell no other individuals were present.. Patient did not share if there was shaking observed prior to her awakening concerning for a seizure. After the initial fall she states was evaluated at [facility] on 06/13/21. She noted "squiggles and floaters" in her right eye that resolved and she was then discharged back to the [facility]. Patient notes she has had seizures since 2011. She feels her seizures are related to a prolonged ICU stay on the ventilator in [facility] in 2009 at which she cannot recall any the details. She has never been seen by a neurologist outside the hospital setting and has never been on antiepileptics. Other than a headache in vision loss in her right field she denies any nausea and vomiting no chest pain no shortness of breath no numbness or tingling. She does note when she was initially evaluated at [facility] on 06/13/2021 she did have diffuse right-sided weakness with upper ext remity and lower extremity weakness but that has since resolved after observation in the emergency department at that time. She is never noted any numbness or tingling loss of bowel or bladder function or loss of limb function. At baseline she wears glasses but she has not worn them in some time since she has been in halfway. On 06/16/21 ED nurse practitioner contacted telephone directory deliverer ophthalmology office, Dr. Luna at 1650 who recommended patient be transferred to ophthalmology for urgent evaluation ED contacted [facility] transfer center and notes at 1750 discussed patient case with button broacher Dr. New who recommended patient be evaluated by neurology. Dr New reportedly recommended contacting neurology for evaluation. ED contacted telephone directory deliverer Neurologist Dr. Rey who recommended patient be started on high-dose steroid protocol 100 mg x 6 days with decreased to 80 mg x 1, 60 mg x 1, 40 mg x 1, 20 mg x 1. Also recommended patient have outpatient MRI and MRA to evaluate vision loss. Recommended ophthalmology consult. ED nurse practitioner then contacted [facility] [id number], unable to accept patient in transfer to [facility] facilities ED nurse practitioner notes he called [facility] at [address] Fritz who recommended patient have CTA head and neck and reconsult. CT results above. WBC 7, Hb 12.9, platelets 318, sed rate 28, NA 138, K3.9, BUN 10, CR 0.7, LFTs within normal laboratory limits, INR 0.9, urine test negative CT head with no acute abnormality CTA neck with no arterial occlusion ED nurse practitioner at [address] Fritz at [facility] who recommends patient be admitted to the hospital for MRI/MRA evaluation related to vision loss. [facility] was unable to accommodate a transfer and the nurse practitioner contacted my partner, Dr. Myles who accepted patient for admission. Patient seen bedside with Dr. Snyder from neurology. I have contacted Dr. Luna and he noted Dr. Ratliff button broacher in his office may be able to accommodate a visit using the requirement for a consult today. Past Surgical History Past Surgical History abcess to left buttock Family History Family History: Hypertension Social History Smoke: 2 packs per day ALCOHOL: heavy (Quit 12/2020) Current Problem List Problem List Problems Medical Problems: (1) Sudden visual loss, right eye Status: Acute Current Medications Current Medications Current Medications Tetracaine HCl (Tetracaine) 1 drop 1X ONCE OU Last administered on 06/16/21at 16:49; Start 06/16/21 at 16:30; Stop 06/16/21 at 16:40; Status DC Iohexol (Omnipaque 300 Mg/ml) 75 ml 1X ONCE IV Last administered on 06/16/21at 19:14; Start 06/16/21 at 19:00; Stop 06/16/21 at 19:02; Status DC Info (CONTRAST GIVEN -- Rx MONITORING) 1 each PRN DAILY PRN MC SEE COMMENTS; Start 06/16/21 at 19:15; Stop 06/18/21 at 19:14 Prednisone (Prednisone) 100 mg 1X ONCE PO Last administered on 06/16/21at 21:34; Start 06/16/21 at 20:30; Stop 06/16/21 at 20:31; Status DC Acetaminophen (Tylenol) 1,000 mg 1X ONCE PO Last administered on 06/17/21at 04:22; Start 06/17/21 at 04:30; Stop 06/17/21 at 04:31; Status DC Active Scripts Active [place] 5-325 Tablet (Acetaminophen/Hydrocodone Bitart) 1 Each Tablet 1 Tab PO TID Potassium Chloride 20 Meq Tablet.er 40 Meq PO 1X 7 Days Macrobid 100 Mg Capsule (Nitrofurantoin Monohyd/M-Cryst) 100 Mg Capsule 1 Cap PO BID 5 Days Compazine (Prochlorperazine Maleate) 10 Mg Tablet 1 Tab PO Q6HRS Medrol (Methylprednisolone) 4 Mg Tab.ds.pk 1 Pkg PO UD Diclofenac Sodium 50 Mg Tablet.dr 1 Tab PO BID Cyclobenzaprine Hcl 10 Mg Tablet 1 Tab PO TID Zofran (Ondansetron Hcl) 4 Mg Tablet 4 Mg PO PRN TID PRN nausea/vomiting Percocet 5-325 Mg Tablet (Oxycodone/Acetaminophen) 1 Each Tablet 1 Each PO PRN TID PRN pain Zofran Odt (Ondansetron) 4 Mg Tab.rapdis 1 Tab SL Q8HRS Augmentin 875-125 Tablet (Amoxicillin/Potassium Clav) 1 Each Tablet 1 Tab PO BID Allergies Allergies: Coded Allergies: No Known Allergies (Verified Allergy, Unknown, 10/17/15) ROS General: No: Chills, Night Sweats, Fatigue, Malaise, Appetite, Other PSYCHOLOGICAL ROS: No: Anxiety, Behavioral Disorder, Concentration difficultie, Decreased libido, Depression, Disorientation, Hallucinations, Hostility, Irritablity, Memory difficulties, Mood Swings, Obsessive thoughts, Physical abuse, Sexual abuse, Sleep disturbances, Suicidal ideation, Other Eyes: Yes Blurry vision, Yes Decreased vision, Yes Loss of vision, Yes Uses contacts; No Double vision, No Dry eyes, No Excessive tearing, No Eye Pain, No Itchy Eyes, No Photophobia, No Scotomata, No Uses glasses, No Other HEENT: YES: Heacaches, Visual Changes; No: Hearing change, Nasal congestion, Nasal discharge, Oral lesions, Sinus pain, Sore Throat, Epistaxis, Sneezing, Snoring, Tinnitus, Vertigo, Vocal changes, Other ALLERGY AND IMMUNOLOGY: No: Hives, Insect Bite Sensitivity, Itchy/Watery Eyes, Nasal Congestion, Post Nasal Drip, Seasonal Allergies, Other Hematological and Lymphatic: No: Bleeding Problems, Blood Clots, Blood Transfusions, Brusing, Night Sweats, Pallor, Swollen Lymph Nodes, Other ENDOCRINE: No: Breast Changes, Galactorrhea, Hair Pattern Changes, Hot Flashes, Malaise/lethargy, Mood Swings, Palpitations, Polydipsia/polyuria, Skin Changes, Temperature Intolerance, Unexpected Weight Changes, Other Breast: No New/Changing Breast Lumps, No Nipple changes, No Nipple discharge, No Other Respiratory: No: Cough, Hemoptysis, Orthopnea, Pleuritic Pain, Shortness of breath, SOB with excertion, Sputum Changes, Stridor, Tachypnea, Wheezing, Other Cardiovascular: No Chest Pain, No Palpitations, No Orthopnea, No Paroxysmal Noc. Dyspnea, No Edema, No Lt Headedness, No Other Gastrointestinal: No Nausea, No Vomiting, No Abdominal Pain, No Diarrhea, No Constipation, No Melena, No Hematochezia, No Other Genitourinary: No Dysuria, No Frequency, No Incontinence, No Hematuria, No Retention, No Discharge, No Urgency, No Pain, No Flank Pain, No Other, No , No , No , No , No , No , No Musculoskeletal: No Gait Disturbance, No Joint Pain, No Joint Stiffness, No Joint Swelling, No Muscle Pain, No Muscular Weakness, No Pain In:, No Swelling In:, No Other Neurological: No Behavorial Changes, No Bowel/Bladder ControlChng, No Confusion, No Dizziness, No Gait Disturbance, No Headaches, No Impaired Coord/balance, No Memory Loss, No Numbness/Tingling, No Seizures, No Speech Problems, No Tremors, No Visual Changes, No Weakness, No Other Skin: No Dry Skin, No Eczema, No Hair Changes, No Lumps, No Mole Changes, No Mottling, No Nail Changes, No Pruritus, No Rash, No Skin Lesion Changes, No Other, No Acne Physical Exam General: Alert, Oriented X3, Cooperative, No acute distress HEENT: Atraumatic, PERRLA, Mucous membr. moist/pink, Other (Right eye light and dark perceived. Left eye ) Lungs: Clear to auscultation, Normal air movement Heart: S1S2, RRR, no thrills, no rubs, no gallops, no murmurs Abdomen: Normal bowel sounds, Soft, No tenderness, No hepatosplenomegaly, No masses Extremities: No clubbing, No cyanosis, No edema, Normal pulses, No tenderness/swelling Skin: No rashes, No breakdown, No significant lesion Neuro: Normal gait, Normal speech, Strength at 5/5 X4 ext, Normal tone, Sensation intact, Cranial nerves 3-12 NL, Reflexes 2+ Psych/Mental Status: Mental status NL, Mood NL Vitals Vitals Vital Signs Date Time Temp Pulse Resp B/P (MAP) Pulse Ox O2 Delivery O2 Flow Rate FiO2 06/17/21 06:43 58 15 96/53 (67) 98 Room Air 06/16/21 21:59 98.5 98.5 Labs Labs Laboratory Tests Test 06/16/21 16:43 06/16/21 16:50 06/16/21 16:59 Bedside Urine HCG, Qualitative Hcg negative (Negative) Prothrombin Time 12.4 SEC (11.7-14.0) Prothromb Time International Ratio 0.9 (0.8-1.1) Activated Partial Thromboplast Time 34 SEC (24-38) White Blood Count 7.0 x10^3/uL (4.0-11.0) Red Blood Count 4.31 x10^6/uL (3.50-5.40) Hemoglobin 12.9 g/dL (12.0-15.5) Hematocrit 37.2 % (36.0-47.0) Mean Corpuscular Volume 86 fL (79-100) Mean Corpuscular Hemoglobin 30 pg (25-35) Mean Corpuscular Hemoglobin Concent 35 g/dL (31-37) Red Cell Distribution Width 13.5 % (11.5-14.5) Platelet Count 318 x10^3/uL (140-400) Neutrophils (%) (Auto) 59 % (31-73) Lymphocytes (%) (Auto) 32 % (24-48) Monocytes (%) (Auto) 6 % (0-9) Eosinophils (%) (Auto) 2 % (0-3) Basophils (%) (Auto) 1 % (0-3) Neutrophils # (Auto) 4.1 x10^3/uL (1.8-7.7) Lymphocytes # (Auto) 2.2 x10^3/uL (1.0-4.8) Monocytes # (Auto) 0.4 x10^3/uL (0.0-1.1) Eosinophils # (Auto) 0.2 x10^3/uL (0.0-0.7) Basophils # (Auto) 0.1 x10^3/uL (0.0-0.2) Erythrocyte Sedimentation Rate 28 (0-25) Sodium Level 138 mmol/L (136-145) Potassium Level 3.9 mmol/L (3.5-5.1) Chloride Level 102 mmol/L (98-107) Carbon Dioxide Level 27 mmol/L (21-32) Anion Gap 9 (6-14) Blood Urea Nitrogen 10 mg/dL (7-20) Creatinine 0.7 mg/dL (0.6-1.0) Estimated GFR (Cockcroft-Gault) 94.7 BUN/Creatinine Ratio 14 (6-20) Glucose Level 90 mg/dL (70-99) Calcium Level 8.7 mg/dL (8.5-10.1) Total Bilirubin 0.2 mg/dL (0.2-1.0) Aspartate Amino Transf (AST/SGOT) 15 U/L (15-37) Alanine Aminotransferase (ALT/SGPT) 17 U/L (14-59) Alkaline Phosphatase 61 U/L (46-116) C-Reactive Protein, Quantitative 2.9 mg/L (0-3.3) Total Protein 8.2 g/dL (6.4-8.2) Albumin 3.8 g/dL (3.4-5.0) Albumin/Globulin Ratio 0.9 (1.0-1.7) Laboratory Tests Test 06/16/21 16:43 06/16/21 16:50 06/16/21 16:59 Bedside Urine HCG, Qualitative Hcg negative (Negative) Prothrombin Time 12.4 SEC (11.7-14.0) Prothromb Time International Ratio 0.9 (0.8-1.1) Activated Partial Thromboplast Time 34 SEC (24-38) White Blood Count 7.0 x10^3/uL (4.0-11.0) Red Blood Count 4.31 x10^6/uL (3.50-5.40) Hemoglobin 12.9 g/dL (12.0-15.5) Hematocrit 37.2 % (36.0-47.0) Mean Corpuscular Volume 86 fL (79-100) Mean Corpuscular Hemoglobin 30 pg (25-35) Mean Corpuscular Hemoglobin Concent 35 g/dL (31-37) Red Cell Distribution Width 13.5 % (11.5-14.5) Platelet Count 318 x10^3/uL (140-400) Neutrophils (%) (Auto) 59 % (31-73) Lymphocytes (%) (Auto) 32 % (24-48) Monocytes (%) (Auto) 6 % (0-9) Eosinophils (%) (Auto) 2 % (0-3) Basophils (%) (Auto) 1 % (0-3) Neutrophils # (Auto) 4.1 x10^3/uL (1.8-7.7) Lymphocytes # (Auto) 2.2 x10^3/uL (1.0-4.8) Monocytes # (Auto) 0.4 x10^3/uL (0.0-1.1) Eosinophils # (Auto) 0.2 x10^3/uL (0.0-0.7) Basophils # (Auto) 0.1 x10^3/uL (0.0-0.2) Erythrocyte Sedimentation Rate 28 (0-25) Sodium Level 138 mmol/L (136-145) Potassium Level 3.9 mmol/L (3.5-5.1) Chloride Level 102 mmol/L (98-107) Carbon Dioxide Level 27 mmol/L (21-32) Anion Gap 9 (6-14) Blood Urea Nitrogen 10 mg/dL (7-20) Creatinine 0.7 mg/dL (0.6-1.0) Estimated GFR (Cockcroft-Gault) 94.7 BUN/Creatinine Ratio 14 (6-20) Glucose Level 90 mg/dL (70-99) Calcium Level 8.7 mg/dL (8.5-10.1) Total Bilirubin 0.2 mg/dL (0.2-1.0) Aspartate Amino Transf (AST/SGOT) 15 U/L (15-37) Alanine Aminotransferase (ALT/SGPT) 17 U/L (14-59) Alkaline Phosphatase 61 U/L (46-116) C-Reactive Protein, Quantitative 2.9 mg/L (0-3.3) Total Protein 8.2 g/dL (6.4-8.2) Albumin 3.8 g/dL (3.4-5.0) Albumin/Globulin Ratio 0.9 (1.0-1.7) Images Images CT head: The ventricles and sulci are within normal limits in size and configuration. No area of abnormal attenuation is seen involving the brain parenchyma. No extra- axial fluid collection is noted. No skull fracture is seen. The visualized orbits are within normal limits. A 8mm mucous retention cyst is involving the right maxillary sinus. Impression: No acute intracranial abnormality is seen. CT ANGIOGRAPHY HEAD AND NECK CTA NECK: Visual is portions of thoracic aorta are unremarkable. Standard three-vessel arch anatomy. Right common carotid artery is patent without evidence of stenosis, occlusion or aneurysm. Cervical segment right internal carotid artery is patent without evidence of stenosis, occlusion or aneurysm. Left common carotid artery is patent without evidence of stenosis, occlusion or aneurysm. Cervical segment of the left internal carotid artery is patent without evidence of stenosis, occlusion or aneurysm. Right vertebral artery is patent to the basilar confluence without evidence of stenosis, occlusion or aneurysm. Left vertebral artery is patent to basilar confluence without evidence of stenosis, occlusion or aneurysm. Visualized paraspinal soft tissues are unremarkable. CTA HEAD: Intracranial segments of the right internal carotid artery are patent without evidence of stenosis, occlusion or aneurysm. Right MCA is patent. Right IVANIA is patent. Intracranial segments of the left internal carotid artery are patent without evidence of stenosis, occlusion or aneurysm. MCA is patent. Left IVANIA is patent. Basilar artery is patent without evidence of stenosis, occlusion or aneurysm. principal technical architect are patent bilaterally. Visualized portions of the dural venous sinuses are patent. IMPRESSION: Patent intracranial and cervical arterial vasculature without evidence of stenosis, occlusion or aneurysm. VTE Prophylaxis Ordered VTE Prophylaxis Devices: No VTE Pharmacological Prophylaxi: No Assessment/Plan Assessment/Plan A/P: Right diminished vision -difficult to assess for retinal detachment on my visual examination. Possible retinal arteriolar venous occlusion. Discussed with ophthalmology for exam today. Given abnormal visual examination MRI and MRA or bit have been ordered by neurology appropriately though these are recommended for outpatient that cannot be accommodated in her currently incarcerated position and apparently no transfer beds were available for emergency ophthalmology examination due to the COVID-19 pandemic. History of seizures -for past 10 years never had formal evaluation or been on antiepileptic medications. She notes at least 5 seizures that people have witnessed that she can recall. Fall - per patient and staff had a seizure partially witnessed. FEN - Regular diet PPX - SCDs FULL CODE Dispo - inpatient for above Justifications for Admission Other Justification LAINE SAGE MD Jun 17, 2021 08:06
[2021-06-17] MEDS ORDERED: predniSONE 20 MG TABLET PO SCH (09:00)
--- NOTE | 2021-06-17 10:42 | PDOC2 ---
NEUROLOGY CONSULT Date of Service DOS: DATE: 06/17/21 TIME: 10:31 Reason for Consult Reason for Consult: Vision loss in the right eye Referring Physician Referring Physician: Dr. Funez Source Source: Chart review, Patient History of Present Illness History of Present Illness The patient is a 36-year-old right-handed female inmate of [facility] who woke up yesterday morning at about 10 AM with complete vision loss in the right eye. 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 She says that she was on the ventilator for several w eeks. She says that she has had a total of 5 seizures. The last 1 was on 06/13. She was in longterm and says that she fell and hit her head. She was taken to the [facility]. While there she was noticing squiggles and floaters in the right eye but says that nothing was done about it. She has never seen a neurologist for the seizures. The visual symptoms did resolve until yesterday morning when she had the blindness. In the [place] emergency room yesterday, SUMAN Yao called Dr. Luna optjo who recommended transfer to ophthalmology for urgent evaluation. He then called the transfer center and Dr. New refused transfer and recommended evaluation by neurology. I spoke to SUMAN Yao at 17:57. He noted that the patient had painless vision loss, normal eye movements, and reactive pupil, normal intraocular pressures. I felt that this was very atypical for organic monocular vision loss. I recommended a sedimentation rate, which was 28, and CT angiogram, which was negative. I recommended prednisone 100 mg daily for 6 days, tapering over the next 4 days for a total of 10 days. I recommended ophthalmology appointment as an outpatient. I recommended MRI of the brain with attention to the orbits, with and without contrast, as an outpatient. I did not see the need for admission to the hospital. After SUMAN Yao finished his call to me, he called [facility] hospital for transfer, who refused, then [facility], and discussed with Dr. Fritz who recommended CT angiogram of the head and neck, which, I had already recommended. Then SUMAN Yao called back Dr. Fritz who refused transfer and recommended MRI/MRA. Again, note, that this neurologist had already recommended an MRI, but not the MRA. Patient has now been admitted to the hospital. Past Medical History CENTRAL NERVOUS SYSTEM: Seizure, Other (Head injury) Past Surgical History Past Surgical History: No pertinent history Family History Family History: No pertinent hx Social History Social History Single, denies alcohol, tobacco, street drugs Current Medications Current Medications Current Medications Tetracaine HCl (Tetracaine) 1 drop 1X ONCE OU Last administered on 06/16/21at 16:49; Start 06/16/21 at 16:30; Stop 06/16/21 at 16:40; Status DC Iohexol (Omnipaque 300 Mg/ml) 75 ml 1X ONCE IV Last administered on 06/16/21at 19:14; Start 06/16/21 at 19:00; Stop 06/16/21 at 19:02; Status DC Info (CONTRAST GIVEN -- Rx MONITORING) 1 each PRN DAILY PRN MC SEE COMMENTS; Start 06/16/21 at 19:15; Stop 06/18/21 at 19:14 Prednisone (Prednisone) 100 mg 1X ONCE PO Last administered on 06/16/21at 21:34; Start 06/16/21 at 20:30; Stop 06/16/21 at 20:31; Status DC Acetaminophen (Tylenol) 1,000 mg 1X ONCE PO Last administered on 06/17/21at 04:22; Start 06/17/21 at 04:30; Stop 06/17/21 at 04:31; Status DC Prednisone (Prednisone) 100 mg DAILY PO Last administered on 06/17/21at 09:38; Start 06/17/21 at 09:00; Stop 06/22/21 at 08:59 Active Scripts Active [place] 5-325 Tablet (Acetaminophen/Hydrocodone Bitart) 1 Each Tablet 1 Tab PO TID Potassium Chloride 20 Meq Tablet.er 40 Meq PO 1X 7 Days Macrobid 100 Mg Capsule (Nitrofurantoin Monohyd/M-Cryst) 100 Mg Capsule 1 Cap PO BID 5 Days Compazine (Prochlorperazine Maleate) 10 Mg Tablet 1 Tab PO Q6HRS Medrol (Methylprednisolone) 4 Mg Tab.ds.pk 1 Pkg PO UD Diclofenac Sodium 50 Mg Tablet.dr 1 Tab PO BID Cyclobenzaprine Hcl 10 Mg Tablet 1 Tab PO TID Zofran (Ondansetron Hcl) 4 Mg Tablet 4 Mg PO PRN TID PRN nausea/vomiting Percocet 5-325 Mg Tablet (Oxycodone/Acetaminophen) 1 Each Tablet 1 Each PO PRN TID PRN pain Zofran Odt (Ondansetron) 4 Mg Tab.rapdis 1 Tab SL Q8HRS Augmentin 875-125 Tablet (Amoxicillin/Potassium Clav) 1 Each Tablet 1 Tab PO BID Allergies Allergies: Coded Allergies: No Known Allergies (Verified Allergy, Unknown, 10/17/15) ROS Review of System Negative for fever, chills, weight loss, shortness of breath, chest pain, indigestion, hematochezia, melena, and dysuria. Full 14-point review of systems is negative. Physical Exam Physical Examination General: Well-developed, well-nourished, female, in no acute distress HEENT: Normocephalic andatraumatic. Tympanic membranes clear.Temporal arteriespulsatile and nontender.Fundoscopic exam unremarkable Neck: Supple without bruit, no meningismus Musculoskeletal: Stability:see neurologic. Gait exam:see neurologic. Tone:see neurologic.Strength:see neurologic. Neurological: Mental Status:intact, orientation, memory, attention span/concentration, language, fund of knowledge normal. Cranial Nerves:Pupils equal and reactive to light, extraocular movements areintact. Has no vision in the right eye. Facial sensation is normal. There is no facial asymmetry. Vestibulo-ocular reflex is intact. Palate elevates and tongue protrudes in midline. All other cranial related problems are negative except as mentioned before.Reflexes:2+ and symmetric with flexor plantar responses. Motor:5/5 strength with normal tone and bulk. Coordination:Finger-nose finger and gijj-[id number] testing are normal. Rapid alternating movements and fine finger movements are intact. Gait:Not tested. Sensory:Normal pinprick, vibration, light touch, proprioception. Vitals VITALS Vital Signs Date Time Temp Pulse Resp B/P (MAP) Pulse Ox O2 Delivery O2 Flow Rate FiO2 06/17/21 06:43 58 15 96/53 (67) 98 Room Air 06/16/21 21:59 98.5 98.5 Labs Labs Laboratory Tests Test 06/16/21 16:43 06/16/21 16:50 06/16/21 16:59 Bedside Urine HCG, Qualitative Hcg negative (Negative) Prothrombin Time 12.4 SEC (11.7-14.0) Prothromb Time International Ratio 0.9 (0.8-1.1) Activated Partial Thromboplast Time 34 SEC (24-38) White Blood Count 7.0 x10^3/uL (4.0-11.0) Red Blood Count 4.31 x10^6/uL (3.50-5.40) Hemoglobin 12.9 g/dL (12.0-15.5) Hematocrit 37.2 % (36.0-47.0) Mean Corpuscular Volume 86 fL (79-100) Mean Corpuscular Hemoglobin 30 pg (25-35) Mean Corpuscular Hemoglobin Concent 35 g/dL (31-37) Red Cell Distribution Width 13.5 % (11.5-14.5) Platelet Count 318 x10^3/uL (140-400) Neutrophils (%) (Auto) 59 % (31-73) Lymphocytes (%) (Auto) 32 % (24-48) Monocytes (%) (Auto) 6 % (0-9) Eosinophils (%) (Auto) 2 % (0-3) Basophils (%) (Auto) 1 % (0-3) Neutrophils # (Auto) 4.1 x10^3/uL (1.8-7.7) Lymphocytes # (Auto) 2.2 x10^3/uL (1.0-4.8) Monocytes # (Auto) 0.4 x10^3/uL (0.0-1.1) Eosinophils # (Auto) 0.2 x10^3/uL (0.0-0.7) Basophils # (Auto) 0.1 x10^3/uL (0.0-0.2) Erythrocyte Sedimentation Rate 28 (0-25) Sodium Level 138 mmol/L (136-145) Potassium Level 3.9 mmol/L (3.5-5.1) Chloride Level 102 mmol/L (98-107) Carbon Dioxide Level 27 mmol/L (21-32) Anion Gap 9 (6-14) Blood Urea Nitrogen 10 mg/dL (7-20) Creatinine 0.7 mg/dL (0.6-1.0) Estimated GFR (Cockcroft-Gault) 94.7 BUN/Creatinine Ratio 14 (6-20) Glucose Level 90 mg/dL (70-99) Calcium Level 8.7 mg/dL (8.5-10.1) Total Bilirubin 0.2 mg/dL (0.2-1.0) Aspartate Amino Transf (AST/SGOT) 15 U/L (15-37) Alanine Aminotransferase (ALT/SGPT) 17 U/L (14-59) Alkaline Phosphatase 61 U/L (46-116) C-Reactive Protein, Quantitative 2.9 mg/L (0-3.3) Total Protein 8.2 g/dL (6.4-8.2) Albumin 3.8 g/dL (3.4-5.0) Albumin/Globulin Ratio 0.9 (1.0-1.7) Laboratory Tests Test 06/16/21 16:43 06/16/21 16:50 06/16/21 16:59 Bedside Urine HCG, Qualitative Hcg negative (Negative) Prothrombin Time 12.4 SEC (11.7-14.0) Prothromb Time International Ratio 0.9 (0.8-1.1) Activated Partial Thromboplast Time 34 SEC (24-38) White Blood Count 7.0 x10^3/uL (4.0-11.0) Red Blood Count 4.31 x10^6/uL (3.50-5.40) Hemoglobin 12.9 g/dL (12.0-15.5) Hematocrit 37.2 % (36.0-47.0) Mean Corpuscular Volume 86 fL (79-100) Mean Corpuscular Hemoglobin 30 pg (25-35) Mean Corpuscular Hemoglobin Concent 35 g/dL (31-37) Red Cell Distribution Width 13.5 % (11.5-14.5) Platelet Count 318 x10^3/uL (140-400) Neutrophils (%) (Auto) 59 % (31-73) Lymphocytes (%) (Auto) 32 % (24-48) Monocytes (%) (Auto) 6 % (0-9) Eosinophils (%) (Auto) 2 % (0-3) Basophils (%) (Auto) 1 % (0-3) Neutrophils # (Auto) 4.1 x10^3/uL (1.8-7.7) Lymphocytes # (Auto) 2.2 x10^3/uL (1.0-4.8) Monocytes # (Auto) 0.4 x10^3/uL (0.0-1.1) Eosinophils # (Auto) 0.2 x10^3/uL (0.0-0.7) Basophils # (Auto) 0.1 x10^3/uL (0.0-0.2) Erythrocyte Sedimentation Rate 28 (0-25) Sodium Level 138 mmol/L (136-145) Potassium Level 3.9 mmol/L (3.5-5.1) Chloride Level 102 mmol/L (98-107) Carbon Dioxide Level 27 mmol/L (21-32) Anion Gap 9 (6-14) Blood Urea Nitrogen 10 mg/dL (7-20) Creatinine 0.7 mg/dL (0.6-1.0) Estimated GFR (Cockcroft-Gault) 94.7 BUN/Creatinine Ratio 14 (6-20) Glucose Level 90 mg/dL (70-99) Calcium Level 8.7 mg/dL (8.5-10.1) Total Bilirubin 0.2 mg/dL (0.2-1.0) Aspartate Amino Transf (AST/SGOT) 15 U/L (15-37) Alanine Aminotransferase (ALT/SGPT) 17 U/L (14-59) Alkaline Phosphatase 61 U/L (46-116) C-Reactive Protein, Quantitative 2.9 mg/L (0-3.3) Total Protein 8.2 g/dL (6.4-8.2) Albumin 3.8 g/dL (3.4-5.0) Albumin/Globulin Ratio 0.9 (1.0-1.7) Images Images CTA head and neck INDICATION: Sudden painless vision loss, right eye TECHNIQUE: Sequential axial images through the head and neck obtained following the administration of 75 mL of Isovue-370 IV contrast. Sagittal and coronal reformatted images were reconstructed from the axial data and reviewed. 3-D reformatted images were reconstructed from the axial data and reviewed. Exposure: One or more of the following in the visualized dose reduction techniques were utilized for this examination: 1. Automated exposure control 2. Adjustment of the MA and/or KV according to patient size 3. Use of iterative of reconstructive technique Comparisons: CT head without contrast same day FINDINGS: CTA NECK: Visual is portions of thoracic aorta are unremarkable. Standard three-vessel arch anatomy. Right common carotid artery is patent without evidence of stenosis, occlusion or aneurysm. Cervical segment right internal carotid artery is patent without evidence of stenosis, occlusion or aneurysm. Left common carotid artery is patent without evidence of stenosis, occlusion or aneurysm. Cervical segment of the left internal carotid artery is patent without evidence of stenosis, occlusion or aneurysm. Right vertebral artery is patent to the basilar confluence without evidence of stenosis, occlusion or aneurysm. Left vertebral artery is patent to basilar confluence without evidence of stenosis, occlusion or aneurysm. Visualized paraspinal soft tissues are unremarkable. CTA HEAD: Intracranial segments of the right internal carotid artery are patent without evidence of stenosis, occlusion or aneurysm. Right MCA is patent. Right IVANIA is patent. Intracranial segments of the left internal carotid artery are patent without evidence of stenosis, occlusion or aneurysm. MCA is patent. Left IVANIA is patent. Basilar artery is patent without evidence of stenosis, occlusion or aneurysm. tier over are patent bilaterally. Visualized portions of the dural venous sinuses are patent. IMPRESSION: Patent intracranial and cervical arterial vasculature without evidence of stenosis, occlusion or aneurysm. CT scan of the head without contrast 06/16/2021 Clinical History: Acute right vision loss. Technique: Unenhanced, contiguous, 5 mm axial sections were obtained through the head. One or more of the following individualized dose reduction techniques were utilized for this study: 1. Automated exposure control. 2. Adjustment of the mA and/or kV according to patient size. 3. Use of iterative reconstruction technique. Findings: The ventricles and sulci are within normal limits in size and configuration. No area of abnormal attenuation is seen involving the brain parenchyma. No extra-axial fluid collection is noted. No skull fracture is seen. The visualized orbits are within normal limits. A 8mm mucous retention cyst is involving the right maxillary sinus. Impression: No acute intracranial abnormality is seen. Assessment/Plan Assessment/Plan Impression: Painless vision loss in the right eye, no other findings History of seizures going on for 12 years, a total of 5 in her life History of severe head injury on a ventilator for a month Recommendations: MRI of the brain with attention to the orbits, I do not see a need for MR angiogram as the CT angiogram was entirely normal Ophthalmology evaluation Steroids, 100 mg prednisone daily for 6 days, then taper over 4 days Holding on starting anticonvulsants Consider outpatient electroencephalogram Discussed with Dr. Funez Thank you for letting me help with the patient's care. TATY MERA MD Jun 17, 2021 10:42
[2021-06-17] MEDS ORDERED: GADOTERATE 5 MMOL/10ML VIAL. IVP ONE (13:30)
[2021-06-17 15:00] VITALS: BP 117/65
--- NOTE | 2021-06-17 15:38 | RAD ---
EXAM: Brain and orbital MRI without and with contrast. HISTORY: Right eye blindness. TECHNIQUE: Multiplanar, multisequence magnetic resonance imaging of the brain and orbits was performe d without and with contrast. COMPARISON: CT angiogram dated 06/16/2021. FINDINGS: There is no restricted diffusion to suggest acute or subacute infarction. There is no mass effect or midline shift. There is no susceptibility effect to suggest hemorrhage. There is no hydroce phalus. There is no suspicious white matter lesion. There are small right maxillary and sphenoid sinus mucous retention cysts. The mastoid air cells are clear. There are normal flow voids within the cerebral vessels. There is no suspicious calvarial lesi on. The orbits are unremarkable. No suspicious enhancing lesion is seen. IMPRESSION: No acute intracranial finding or finding correlate with right-sided blindness. Electronically signed by: Valencia Reinoso MD (06/17/2021 3:35 PM) [id number]
[2021-06-17] MEDS ORDERED: oxyCODONE/APAP 5/325 1 TAB TABLET PO PRN (16:15)
[2021-06-17] MEDS ORDERED: PRED20TA PO (17:38)
[2021-06-17] MEDS ORDERED: LAMO25TA9 PO (17:51)
--- NOTE | 2021-06-17 17:53 | SNU/HH DC ---
DISCHARGE ORDERS DISCHARGE INFORMATION: DISCHARGE DATE: Jun 17, 2021 FINAL DIAGNOSIS Problems Medical Problems: (1) Sudden visual loss, right eye Status: Acute CONDITION ON DISCHARGE: Stable CODE STATUS: Code Status: Full POST DISCHARGE ORDERS: ACTIVITY ORDERS: No restrictions, Resume previous activity, Activity as tolerated WEIGHT BEARING STATUS: No restrictions, Full weight bearing, As tolerated DIET AFTER DISCHARGE: Regular WOUND/INCISION CARE: No wound care needed CHECKS AFTER DISCHARGE: CHECKS AFTER DISCHARGE: Check your Temp as needed FOLLOW-UP: PHYSICIAN FOLLOW-UP: [facility] ADDITIONAL FOLLOW-UP: PRIMARY CARE PROVIDER NEEDED TREATMENT/EQUIPMENT ORDERS: ADAPTIVE EQUIPMENT NEEDED: None DISCHARGE MEDICATIONS: Home Meds Active Scripts Lamotrigine (LAMOTRIGINE) 25 Mg Tablet, 1 TAB PO BID for PTSD for 30 Days, #60 TAB 2 Refills Prov:LAINE SAGE MD 06/17/21 Prednisone (PREDNISONE) 20 Mg Tablet, 100 MG PO DAILY for Inflammation for 5 Days, #25 TAB Prov:LAINE SAGE MD 06/17/21 Discontinued Scripts Hydrocodone/Apap 5-325 (NORCO 5-325 TABLET) 1 Each Tablet, 1 TAB PO TID, #10 TAB Prov:JUVENAL BRUCE I DO 09/07/19 Potassium Chloride (Potassium Chloride) 20 Meq Tablet.er, 40 MEQ PO 1X for 7 Days, #7 TAB.SR Prov:JUVENAL BRUCE I DO 09/07/19 Nitrofurantoin Monohyd/M-Cryst (MACROBID 100 MG CAPSULE) 100 Mg Capsule, 1 CAP PO BID for 5 Days, #10 CAP 0 Refills Prov:JUVENAL BRUCE I DO 09/07/19 Prochlorperazine Maleate (Compazine) 10 Mg Tablet, 1 TAB PO Q6HRS, #21 TAB 0 Refills Prov:SLAVA RICHTER [employer]OR E[employer]ING 08/23/19 Methylprednisolone (MEDROL) 4 Mg Tab.ds.pk, 1 PKG PO UD, #1 PKG Prov:SLAVA RICHTER [employer] 08/13/18 Diclofenac Sodium (DICLOFENAC SODIUM) 50 Mg Tablet.dr, 1 TAB PO BID, #60 TAB 1 Refill Prov:SLAVA RICHTER [employer]ING 08/13/18 Cyclobenzaprine Hcl (CYCLOBENZAPRINE HCL) 10 Mg Tablet, 1 TAB PO TID, #30 TAB Prov:SLAVA RICHTER [employer]ING 08/13/18 Ondansetron Hcl (ZOFRAN) 4 Mg Tablet, 4 MG PO PRN TID PRN for NAUSEA, #20 nausea/vomiting Prov:TATY ROMERO DO 10/18/17 Oxycodone/Apap 5-325 (PERCOCET 5-325 MG TABLET ) 1 Each Tablet, 1 EACH PO PRN TID PRN for PAIN, #20 TAB pain Prov:TATY ROMERO DO 10/18/17 Ondansetron (ZOFRAN ODT) 4 Mg Tab.rapdis, 1 TAB SL Q8HRS for NAUSEA, #10 TAB Prov:CHAPIN PHILIPPE MD 12/07/16 Amoxicillin/Potassium Clav (AUGMENTIN 875-125 TABLET) 1 Each Tablet, 1 TAB PO BID for mastitis, #20 TAB Prov:CHAPIN PHILIPPE MD 12/07/16 LAINE SAGE MD Jun 17, 2021 17:53
--- NOTE | 2021-06-17 17:59 | PDOC3 ---
Discharge Summary Visit Information Date of Admission: Jun 16, 2021 Date of Discharge: Jun 17, 2021 Admitting Diagnosis: Right eye visual loss Final Diagnosis Problems Medical Problems: (1) Sudden visual loss, right eye Status: Acute Brief Hospital Course Allergies Allergies Coded Allergies Type Severity Reaction Last Updated Verified No Known Allergies Allergy Unknown 10/17/15 Yes Vital Signs Vital Signs Date Time Temp Pulse Resp B/P (MAP) Pulse Ox O2 Delivery O2 Flow Rate FiO2 06/17/21 17:12 Room Air 06/17/21 15:00 98.3 90 117/65 (82) 98 98.3 06/17/21 13:17 19 Lab Results Laboratory Tests Test 06/16/21 16:43 06/16/21 16:50 06/16/21 16:59 Bedside Urine HCG, Qualitative Hcg negative (Negative) Prothrombin Time 12.4 SEC (11.7-14.0) Prothromb Time International Ratio 0.9 (0.8-1.1) Activated Partial Thromboplast Time 34 SEC (24-38) White Blood Count 7.0 x10^3/uL (4.0-11.0) Red Blood Count 4.31 x10^6/uL (3.50-5.40) Hemoglobin 12.9 g/dL (12.0-15.5) Hematocrit 37.2 % (36.0-47.0) Mean Corpuscular Volume 86 fL (79-100) Mean Corpuscular Hemoglobin 30 pg (25-35) Mean Corpuscular Hemoglobin Concent 35 g/dL (31-37) Red Cell Distribution Width 13.5 % (11.5-14.5) Platelet Count 318 x10^3/uL (140-400) Neutrophils (%) (Auto) 59 % (31-73) Lymphocytes (%) (Auto) 32 % (24-48) Monocytes (%) (Auto) 6 % (0-9) Eosinophils (%) (Auto) 2 % (0-3) Basophils (%) (Auto) 1 % (0-3) Neutrophils # (Auto) 4.1 x10^3/uL (1.8-7.7) Lymphocytes # (Auto) 2.2 x10^3/uL (1.0-4.8) Monocytes # (Auto) 0.4 x10^3/uL (0.0-1.1) Eosinophils # (Auto) 0.2 x10^3/uL (0.0-0.7) Basophils # (Auto) 0.1 x10^3/uL (0.0-0.2) Erythrocyte Sedimentation Rate 28 (0-25) Sodium Level 138 mmol/L (136-145) Potassium Level 3.9 mmol/L (3.5-5.1) Chloride Level 102 mmol/L (98-107) Carbon Dioxide Level 27 mmol/L (21-32) Anion Gap 9 (6-14) Blood Urea Nitrogen 10 mg/dL (7-20) Creatinine 0.7 mg/dL (0.6-1.0) Estimated GFR (Cockcroft-Gault) 94.7 BUN/Creatinine Ratio 14 (6-20) Glucose Level 90 mg/dL (70-99) Calcium Level 8.7 mg/dL (8.5-10.1) Total Bilirubin 0.2 mg/dL (0.2-1.0) Aspartate Amino Transf (AST/SGOT) 15 U/L (15-37) Alanine Aminotransferase (ALT/SGPT) 17 U/L (14-59) Alkaline Phosphatase 61 U/L (46-116) C-Reactive Protein, Quantitative 2.9 mg/L (0-3.3) Total Protein 8.2 g/dL (6.4-8.2) Albumin 3.8 g/dL (3.4-5.0) Albumin/Globulin Ratio 0.9 (1.0-1.7) Brief Hospital Course Ms Rodriguez is a 36 year old female w/ PMHx seizures presents to the emergency department in [facility] complaining of waking up at approximately 10:00 on 06/16/2021 in the morning with vision loss to the right eye. She does wear glasses at baseline and has been incarcerated since March 2021 and has not had her glasses. She has complained of left frontal and temporal headache since a fall out of her bed on 06/13/2021. She does not recall the circumstances of the fall she remembers just waking up on the floor. She is in a low lying cot in an individual prison cell no other individuals were present.. Patient did not share if there was shaking observed prior to her awakening concerning for a seizure. After the initial fall she states was evaluated at [facility] on 06/13/21. She noted "squiggles and floaters" in her right eye that resolved and she was then discharged back to the [facility]. Patient notes she has had seizures since 2011. She feels her seizures are related to a prolonged ICU stay on the ventilator in [facility] in 2009 at which she cannot recall any the details. She has never been seen by a neurologist outside the hospital setting and has never been on antiepileptics. Other than a headache in vision loss in her right field she denies any nausea and vomiting no chest pain no shortness of breath no numbness or tingling. She does note when she was initially evaluated at [facility] on 06/13/2021 she did have diffuse right-sided weakness with upper extremity and lower extremity weakness but that has since resolved after obser vation in the emergency department at that time. She is never noted any numbness or tingling loss of bowel or bladder function or loss of limb function. At baseline she wears glasses but she has not worn them in some time since she has been in prison. On 06/16/21 ED nurse practitioner contacted [facility], Dr. Luna at 1650 who recommended patient be transferred to ophthalmology for urgent evaluation ED contacted [facility] transfer center and notes at 1750 discussed patient case with supervisor lead refinery Dr. New who recommended patient be evaluated by neurology. Dr New reportedly recommended contacting neurology for evaluation. ED contacted [facility] Neurologist Dr. Rey who recommended patient be started on high-dose steroid protocol 100 mg x 6 days with decreased to 80 mg x 1, 60 mg x 1, 40 mg x 1, 20 mg x 1. Also recommended patient have outpatient MRI and MRA to evaluate vision loss. Recommended ophthalmology consult. ED nurse practitioner then contacted [facility] [id number], unable to accept patient in transfer to [facility] facilities ED nurse practitioner notes he called [facility] at [address] Fritz who recommended patient have CTA head and neck and reconsult. CT results above. WBC 7, Hb 12.9, platelets 318, sed rate 28, NA 138, K3.9, BUN 10, CR 0.7, LFTs within normal laboratory limits, INR 0.9, urine test negative CT head with no acute abnormality CTA neck with no arterial occlusion ED nurse practitioner at [address] Fritz at [facility] who recommends patient be admitted to the hospital for MRI/MRA evaluation related to vision loss. [facility] was unable to accommodate a transfer and the nurse practitioner contacted my partner, Dr. Myles who accepted patient for admission. Patient seen bedside with Dr. Snyder from neurology. I have contacted Dr. Luna and he noted Dr. Ratliff supervisor lead refinery in his office may be able to accommodate a visit using the requirement for a consult today. Consults: Ophthalmology, Neurology MRI brain and orbit with no acute abnormalities. Discussed with ophthalmology no abnormalities on examination no clear explanation for sudden vision loss in right eye outside of somatizations. Patient notes she has PTSD and has been diagnosed with anxiety and depression and previously has been told she has "manic depression" after an inpatient psychiatric stay has never formally been told that she has bipolar disorder I discussed that this is a likely diagnosis with her and given her history of seizures previously and risk-taking behavior and history of manic episodes may be appropriate to be on a mood stabilizer and I will prescribe lamotrigine with no more than 2 refills while she is awaiting formal evaluation by psychiatrist referral to [facility] psychiatry department has been given to the stogie packer's department. HEENT: Head normocephalic, atraumatic. NECK: Supple LUNGS: Clear to auscultation. HEART: RRR, S1, S2 present, pulses intact ABDOMEN: Soft, positive bowel sounds. EXTREMITIES: No cyanosis or edema. NEUROLOGIC: Normal speech, normal tone PSYCHIATRIC: Normal affect, normal mood. SKIN: No ulceration. Problem list: Right diminished vision - given negative examination and MRI likely somatization. PTSD, anxiety, depression -possible history of bipolar disorder. No recent formal evaluation. History of seizures -for past 10 years never had formal evaluation or been on antiepileptic medications. She notes at least 5 seizures that people have witnessed that she can recall. Fall - per patient and staff had a seizure partially witnessed. Greater than 30 minutes spent on d/c to prison Discharge Information Condition at Discharge: Improved Follow Up: Weeks (1) Disposition/Orders: Other (Custodial) Scheduled Lamotrigine (Lamotrigine) 25 Mg Tablet, 1 TAB PO BID for PTSD for 30 Days, #60 Ref 2 Prescribed by: LAINE SAGE MD on 06/17/21 1751 Prednisone (Prednisone) 20 Mg Tablet, 100 MG PO DAILY for Inflammation for 5 Days, #25 Prescribed by: LAINE SAGE MD on 06/17/21 1738 Discontinued Medications Amoxicillin/Potassium Clav (Augmentin 875-125 Tablet) 1 Each Tablet, 1 TAB PO BID for mastitis, #20 Prescribed by: CHAPIN PHILIPPE MD on 12/07/162047 Cyclobenzaprine Hcl (Cyclobenzaprine Hcl) 10 Mg Tablet, 1 TAB PO TID, #30 Prescribed by: Bhumika Minor APRN on 08/13/18 1247 Diclofenac Sodium (Diclofenac Sodium) 50 Mg Tablet.dr, 1 TAB PO BID, #60 Ref 1 Prescribed by: Bhumika Minor APRN on 08/13/18 1247 Hydrocodone/Apap 5-325 ([place] 5-325 Tablet) 1 Each Tablet, 1 TAB PO TID, #10 Prescribed by: JUVENAL BRUCE D.O. on 09/07/19 004 Methylprednisolone (Medrol) 4 Mg Tab.ds.pk, 1 PKG PO UD, #1 Prescribed by: Bhumika Minor APRN on 08/13/18 1247 Nitrofurantoin Monohyd/M-Cryst (Macrobid 100 Mg Capsule) 100 Mg Capsule, 1 CAP P O BID for 5 Days, #10 Ref 0 Prescribed by: JUVENAL BRUCE D.O. on 09/07/1948 Ondansetron (Zofran Odt) 4 Mg Tab.rapdis, 1 TAB SL Q8HRS for NAUSEA, #10 Prescribed by: CHAPIN PHILIPPE MD on 12/07/162048 Ondansetron Hcl (Zofran) 4 Mg Tablet, 4 MG PO PRN TID PRN for NAUSEA, #20 nausea/vomiting Prescribed by: TATY ROMERO D.O. on 10/18/171925 Oxycodone/Apap 5-325 (Percocet 5-325 Mg Tablet ) 1 Each Tablet, 1 EACH PO PRN TID PRN for PAIN, #20 pain Prescribed by: TATY ROMERO D.O. on 10/18/171925 Potassium Chloride (Potassium Chloride) 20 Meq Tablet.er, 40 MEQ PO 1X for 7 Days, #7 Prescribed by: JUVENAL BRUCE D.O. on 09/07/1948 Prochlorperazine Maleate (Compazine) 10 Mg Tablet, 1 TAB PO Q6HRS, #21 Ref 0 Prescribed by: Bhumika Minor APRN on 08/23/19 1613 Justicifation of Admission Dx: Justifications for Admission: Justification of Admission Dx: Yes LAINE SAGE MD Jun 17, 2021 17:59
--- NOTE | 2021-06-17 18:38 | NUR ---
Discharge Note: PT DISCHARGED HOME WITH SELF CARE TO [facility]. PT LEFT FACILITY VIA [facility] AT 1840. PT STABLE AND ALERT UPON DISCHARGE. PT PIV REMOVED FROM R AC WITHOUT COMPLICATIONS, BANDAGE APPLIED. PT EDUCATED ABOUT DISCHARGE INSTRUCTIONS, DISCHARGE MEDICATIONS, AND FOLLOW-UP CARE INSTRUCTIONS. NO CONCERNS VOICED AT THIS TIME. PT LEFT WITH ALL PERSONAL BELONGINGS. FLACO ECHEVERRIA Discharge instructions and discharge home medications reviewed with Patient and a copy given. All questions have been answered and understanding verbalized.
== END 2021-06-17 18:43 | DRG 125 ==
LOC: EEVIPCON 15:45 → ER 15:45 → ED HOLD 20:50 → 5 SOUTH 06-17 15:18
PROVIDERS: ADMIT Student in an Organized Health Care Education/Training Program; ATTEND Student in an Organized Health Care Education/Training Program
DX: H54.61 Unqualified visual loss, right eye, normal vision left eye (principal); R79.1 Abnormal coagulation profile; A59.9 Trichomoniasis, unspecified; F17.210 Nicotine dependence, cigarettes, uncomplicated; F31.9 Bipolar disorder, unspecified; F43.10 Post-traumatic stress disorder, unspecified; R56.9 Unspecified convulsions; Z82.49 Family history of ischemic heart disease and other diseases of the circulatory system; W18.39XA Other fall on same level, initial encounter; Y93.89 Activity, other specified; Y92.89 Other specified places as the place of occurrence of the external cause; Y99.8 Other external cause status
CPT/HCPCS: 36415; 70450; 70496; 70498; 70543; 70553; 80053; 81025; 84443; 85025; 85610; 85651; 85730; 86140; 86592; 87040; 93005; A9575; J7512; Q9967; 99285-25

== ENCOUNTER 2021-07-14 09:45 | Emergency (ER) | payer OTHER ==
[~2021-07-14] VITALS: Ht 147.3 cm; Wt 55.0 kg
[~2021-07-14 09:45] MED LIST changes: +LAMO25TA9 PO; +PRED20TA PO
[2021-07-14 13:26] LABS: CLARITY,URINE CLEAR; COLOR,URINE YELLOW
[2021-07-14 13:27] LABS: HYALINE CASTS, URINE MODERATE /HPF
[2021-07-14 13:28] LABS: BACTERIA,URINE 0 /HPF (0-FEW); RBC,URINE OCC /HPF (0-2)
[2021-07-14 13:29] LABS: BILIRUBIN,URINE NEGATIVE (NEG); NITRITE,URINE NEGATIVE (NEG); PH,URINE 6.5 (<5.0-8.0); PROTEIN,URINE NEGATIVE (NEG-TRACE); UROBILINOGEN,URINE 0.2 mg/dL (0.2 mg/dL)
[2021-07-14 13:30] LABS: U PREG PATIENT NEGATIVE (NEG)
[2021-07-14] MEDS ORDERED: KETOROLAC 30 MG/ML VIAL. IVP ONE (14:30)
[2021-07-14 15:07] LABS: BASO # 0.1 x10^3/uL (0.0-0.2); BASO % 1 % (0-3); EOS # 0.1 x10^3/uL (0.0-0.7); EOS % 2 % (0-3); HEMATOCRIT 36.1 % (36.0-47.0); HEMOGLOBIN 12.1 g/dL (12.0-15.5); LYMPH % 33 % (24-48); MEAN CORPUSCULAR HEMOGLOBIN 29 pg (25-35); MEAN CORPUSCULAR HGB CONC 33 g/dL (31-37); MEAN CORPUSCULAR VOLUME 86 fL (79-100); MONO # 0.3 x10^3/uL (0.0-1.1); MONO % 6 % (0-9); NEUT # 3.5 x10^3/uL (1.8-7.7); NEUT % 58 % (31-73); PLATELET COUNT 336 x10^3/uL (140-400); RED BLOOD COUNT 4.19 x10^6/uL (3.50-5.40); RED CELL DISTRIBUTION WIDTH 13.3 % (11.5-14.5); WHITE BLOOD COUNT 6.1 x10^3/uL (4.0-11.0)
[2021-07-14 15:18] LABS: CALCIUM 9.3 mg/dL (8.5-10.1); CREATININE 0.8 mg/dL (0.6-1.0); GFR 81.2; POTASSIUM 4.1 mmol/L (3.5-5.1)
[2021-07-14 15:24] LABS: ALBUMIN 3.9 g/dL (3.4-5.0); TOTAL BILIRUBIN 0.3 mg/dL (0.2-1.0)
[2021-07-14 16:36] LABS: BILIRUBIN,URINE NEGATIVE (NEG); CLARITY,URINE CLEAR; COLOR,URINE STRAW; NITRITE,URINE NEGATIVE (NEG); PROTEIN,URINE NEGATIVE (NEG-TRACE); UROBILINOGEN,URINE 0.2 mg/dL (0.2 mg/dL)
[2021-07-14 16:37] LABS: BACTERIA,URINE 0 /HPF (0-FEW); RBC,URINE 0 /HPF (0-2); WBC,URINE 0 /HPF (0-4)
[2021-07-14 18:35] VITALS: BP 86/49
--- NOTE | 2021-07-14 18:38 | RAD ---
INDICATION: Reason: Left flank pain, hematuria, stone study / Spl. Instructions: / History: COMPARISON: Not available TECHNIQUE: Axial CT images were obtained through the abdomen and pelvis without intravenous contrast. One or more of the following individualized dose reduction techniques were utilized for this examinat ion: 1. Automated exposure control; 2. Adjustment of the mA and/or kV according to patient size; 3 . Use of iterative reconstruction technique. FINDINGS: Vascular: No abdominal aortic aneurysm. Hepatobiliary: No intrahepatic biliary duct dilation. Pancreas: Limited assessment secondary to lack of contrast. Spleen: Spleen unremarkable. Renal/Bladder: No hydronephrosis. Lobulated appearance of the kidneys. Gastrointestinal: No periappendiceal inflammatory changes. No dilated loops of bowel to suggest obstr uction. Degenerative changes of the spine with mild scoliotic curvature. IMPRESSION: * No hydronephrosis or definite radiopaque obstructing ureter stone. Electronically signed by: Sandeep Jovel MD (07/14/2021 6:35 PM) [id number]
--- NOTE | 2021-07-14 18:48 | PHYS DOC ---
Past Medical History Past Medical History: No Pertinent History, Kidney Infection Additional Past Medical Histor: miscarriages, OVARIAN CYST (ERIKA MCARTHUR APRN) Past Surgical History: , Other Additional Past Surgical Histo: abcess to left buttock (ERIKA MCARTHUR APRN) Smoking Status: Never Smoker Alcohol Use: None Drug Use: None (ERIKA MCARTHUR APRN) General Adult EDM: Chief Complaint: FLANK PAIN HPI: HPI: Patient is a 36-year-old female who presents to the emergency department complaining of left lower abdominal discomfort for the past week. Patient reports she has been telling the [facility] at [facility] all week long of her pain but they did not allow her to come for evaluation until today. Patient reports her last menstrual cycle 2 weeks ago normal duration of flow. Denies increased urinary frequency, urinary pressure, burning with urination, hematuria or other dysuria. Patient denies vaginal discharge, patient denies STI concerns, patient reports she has been in the [facility] long-term for the past 4 months and has not had sex. Patient denies nausea, vomiting, diarrhea or constipation. Patient denies chest pains, chest or nasal congestion, denies donny st palpitations, recent fever or chills. Patient denies other physical complaints or physical concerns. Patient denies a history of ovarian cyst, PCOS, reports a family history of cancer stating that her aunt on her mother side at age 40 but does not know the type of cancer. Patient is currently in [facility] correctional facility custody, there is a [facility] officer at bedside, the patient is shackled hands and feet. (ERIKA MCARTHUR APRN) Review of Systems: Review of Systems: 14 body systems of review of systems have been reviewed. See HPI for pertinent positives and negative responses, otherwise all other systems are negative, nonpertinent or noncontributory. Constitutional: Negative except as outlined in HPI above. Skin: Negative except as outlined in HPI above. Eyes: Negative except as outlined in HPI above. HENT: Negative except as outlined in HPI above. Respiratory: Negative except as outlined in HPI above. Cardiovascular: Negative except as outlined in HPI above. GI: Negative except as outlined in HPI above. : Negative except as outlined in HPI above. Musculoskeletal: Negative except as outlined in HPI above. Integument: Negative except as outlined in HPI above. Neurologic: Negative except as outlined in HPI above. Endocrine: Negative except as outlined in HPI above. Lymphatic: Negative except as outlined in HPI above. Psychiatric: Negative except as outlined in HPI above. (ERIKA MCARTHUR APRN) Heart Score: C/O Chest Pain: No Risk Factors: Risk Factors: DM, Current or recent (<one month) smoker, HTN, HLP, family history of CAD, obesity. Risk Scores: Score 0 - 3: 2.5% MACE over next 6 weeks - Discharge Home Score 4 - 6: 20.3% MACE over next 6 weeks - Admit for Clinical Observation Score 7 - 10: 72.7% MACE over next 6 weeks - Early Invasive Strategies (ERIKA MCARTHUR APRN) Current Medications: Current Medications Medications (Trade) Dose Ordered Sig/Yasmany Start Time Stop Time Status Last Admin Dose Admin Ketorolac Tromethamine (Toradol 30mg Vial) 30 mg 1X ONCE 07/14/21 14:30 07/14/21 14:31 DC 07/14/21 14:56 30 MG (ERIKA MCARTHUR APRN) Allergies: Allergies: Allergies Coded Allergies Type Severity Reaction Last Updated Verified No Known Allergies Allergy Unknown 10/17/15 Yes (ERIKA MCARTHUR APRN) Physical Exam: PE: Constitutional: Well developed, well nourished, no acute distress, non-toxic appearance. 36-year-old female in no apparent distress. HENT: Normocephalic, atraumatic. Eyes: Conjunctiva normal, no discharge. Neck: Normal range of motion, no stridor. Cardiovascular: No cyanosis appreciated, distal cap refill less than 2 seconds. Lungs & Thorax: Patient is in no respiratory distress, no audible adventitious lung sounds appreciated. Abdomen: Abdomen soft, no abnormal discoloration of the abdomen appreciated, no pulsatile masses, no megaly, there is no distention, negative McBurney's point tenderness, negative psoas sign, negative Godfrey sign, there is pain to palpation of the left lower quadrant, there is no rebound tenderness appreciated. Skin: Warm, dry, no erythema, no rash. Back: No tenderness, no deformities. Extremities: No tenderness, no cyanosis, no clubbing, ROM intact, no edema. Neurologic: Alert and oriented X 3, normal motor function, normal sensory function, no focal deficits noted. Psychologic: Affect normal, judgement normal, mood normal. (ERIKA MCARTHUR APRN) Current Patient Data: Labs: Laboratory Tests Test 07/14/21 13:10 07/14/21 14:57 07/14/21 15:32 Urine Collection Type Unknown Unknown Urine Color Yellow Straw Urine Clarity Clear Clear Urine pH 6.5 (<5.0-8.0) 7.0 (<5.0-8.0) Urine Specific [place] 1.020 (1.000-1.030) 1.015 (1.000-1.030) Urine Protein Negative mg/dL (NEG-TRACE) Negative mg/dL (NEG-TRACE) Urine Glucose (UA) Negative mg/dL (NEG) Negative mg/dL (NEG) Urine Ketones (Stick) Negative mg/dL (NEG) Negative mg/dL (NEG) Urine Blood Trace (NEG) Trace (NEG) Urine Nitrite Negative (NEG) Negative (NEG) Urine Bilirubin Negative (NEG) Negative (NEG) Urine Urobilinogen Dipstick 0.2 mg/dL (0.2 mg/dL) 0.2 mg/dL (0.2 mg/dL) Urine Leukocyte Esterase Trace (NEG) Negative (NEG) Urine RBC Occ /HPF (0-2) 0 /HPF (0-2) Urine WBC 1-4 /HPF (0-4) 0 /HPF (0-4) Urine Squamous Epithelial Cells Mod /LPF Mod /LPF Urine Bacteria 0 /HPF (0-FEW) 0 /HPF (0-FEW) Urine Hyaline Casts Moderate /HPF Urine Mucus Slight /LPF Slight /LPF Urine Test Negative (NEG) White Blood Count 6.1 x10^3/uL (4.0-11.0) Red Blood Count 4.19 x10^6/uL (3.50-5.40) Hemoglobin 12.1 g/dL (12.0-15.5) Hematocrit 36.1 % (36.0-47.0) Mean Corpuscular Volume 86 fL (79-100) Mean Corpuscular Hemoglobin 29 pg (25-35) Mean Corpuscular Hemoglobin Concent 33 g/dL (31-37) Red Cell Distribution Width 13.3 % (11.5-14.5) Platelet Count 336 x10^3/uL (140-400) Neutrophils (%) (Auto) 58 % (31-73) Lymphocytes (%) (Auto) 33 % (24-48) Monocytes (%) (Auto) 6 % (0-9) Eosinophils (%) (Auto) 2 % (0-3) Basophils (%) (Auto) 1 % (0-3) Neutrophils # (Auto) 3.5 x10^3/uL (1.8-7.7) Lymphocytes # (Auto) 2.0 x10^3/uL (1.0-4.8) Monocytes # (Auto) 0.3 x10^3/uL (0.0-1.1) Eosinophils # (Auto) 0.1 x10^3/uL (0.0-0.7) Basophils # (Auto) 0.1 x10^3/uL (0.0-0.2) Sodium Level 141 mmol/L (136-145) Potassium Level 4.1 mmol/L (3.5-5.1) Chloride Level 104 mmol/L (98-107) Carbon Dioxide Level 26 mmol/L (21-32) Anion Gap 11 (6-14) Blood Urea Nitrogen 10 mg/dL (7-20) Creatinine 0.8 mg/dL (0.6-1.0) Estimated GFR (Cockcroft-Gault) 81.2 BUN/Creatinine Ratio 13 (6-20) Glucose Level 82 mg/dL (70-99) Calcium Level 9.3 mg/dL (8.5-10.1) Total Bilirubin 0.3 mg/dL (0.2-1.0) Aspartate Amino Transferase (AST) 23 U/L (15-37) Alanine Aminotransferase (ALT) 16 U/L (14-59) Alkaline Phosphatase 60 U/L (46-116) Total Protein 8.0 g/dL (6.4-8.2) Albumin 3.9 g/dL (3.4-5.0) Albumin/Globulin Ratio 1.0 (1.0-1.7) Lipase 72 U/L (73-393) L Laboratory Tests 07/14/21 14:57 Laboratory Tests 07/14/21 14:57 Vital Signs: Vital Signs Date Time Temp Pulse Resp B/P (MAP) Pulse Ox O2 Delivery O2 Flow Rate FiO2 07/14/21 15:10 53 16 98/56 (70) 100 Room Air 07/14/21 10:50 98.1 98.1 (ERIKA MCARTHUR APRN) EKG: EKG: [] (ERIKA MCARTHUR APRN) Radiology/Procedures: Radiology/Procedures: REASON: Left flank pain, hematuria, stone study PROCEDURE: CT ABDOMEN PELVIS WO CONTRAST INDICATION: Reason: Left flank pain, hematuria, stone study / Spl. Instructions: / History: COMPARISON: Not available TECHNIQUE: Axial CT images were obtained through the abdomen and pelvis without intravenous contrast. One or more of the following individualized dose reduction techniques were utilized for this examination: 1. Automated exposure control; 2. Adjustment of the mA and/or kV according to patient size; 3. Use of iterative reconstruction technique. FINDINGS: Vascular: No abdominal aortic aneurysm. Hepatobiliary: No intrahepatic biliary duct dilation. Pancreas: Limited assessment secondary to lack of contrast. Spleen: Spleen unremarkable. Renal/Bladder: No hydronephrosis. Lobulated appearance of the kidneys. Gastrointestinal: No periappendiceal inflammatory changes. No dilated loops of bowel to suggest obstruction. Degenerative changes of the spine with mild scoliotic curvature. IMPRESSION: * No hydronephrosis or definite radiopaque obstructing ureter stone. Electronically signed by: Sandeep Jovel MD (07/14/2021 6:35 PM) [id number] (ERIKA MCARTHUR APRN) Course & Med Decision Making: Course & Med Decision Making Pertinent Labs and Imaging studies reviewed. (See chart for details) 36-year-old female, vital signs reviewed, presents to the emergency department concerning left lower quadrant pain for a week. Physical examination concerning for abdominal process, will order CBC, CMP, IV normal saline, pain medication, urinalysis assay. Will consider imaging of abdomen pending urinalysis assay. Patient's urine shows hematuria, other evidence of contaminated catch, discussed with patient need to reexamine new urine sample with clean-catch technique. Patient reports she did not wipe with vaginal cleansing wipes prior to giving sample as directed, will do so on next sample. After an extended period of time, patient gave second urine sample. Continues to show trace blood, however no longer positive for leukocyte Estrace, there were no urine red blood cells present. Will order CT abdomen pelvis stone study. CT abdomen pelvis negative for acute process. There is no nephrolithiasis. No other abnormalities were noted. Upon reevaluation of the patient, patient reports her pain level is down to a 1 or 2 out of 10 and is tolerable. Discussed strict follow-up with primary care or at the [facility] for ongoing abdominal discomfort. Continue to drink plenty of fluids. There is a urine culture pending off a first contaminated urinalysis assay, the second clean- catch urine had no leukocyte esterase, there were no bacteria, no white cells or red cells present. There is no indication to treat for prophylactic UTI symptoms. Discussed with patient return to ER precautions and concerns, patient gave verbal understanding of and is amenable to ED discharge planning. Patient has been seen in this emergency department several times since being incarcerated 4 months ago. I am suspicious of patient malingering to get out of long-term. Discussed with the patient all findings and diagnostic testing as well as the need to follow-up with their primary care provider for further evaluation and treatment or return to the ED if any new or worsening symptoms. Strict return precautions were also discussed at length, the patient voiced understanding and agreement with the discharge planning. The patient was nontoxic in appearance, in no apparent distress, and hemodynamically stable at the time of disposition. (ERIKA MCARTHUR APRN) Course & Med Decision Making Patients Care and treatment plan provided by ER Nurse Practitioner. I was not involved in this patients care but was available for consult. Patient's chart reviewed. (JUVENAL BRUCE DO) Latricia Disclaimer: Latricia Disclaimer: This electronic medical record was generated, in whole or in part, using a voice recognition dictation system. (ERIKA MCARTHUR APRN) Departure Departure Impression: Primary Impression: Abdominal pain Qualified Codes: R10.32 - Left lower quadrant pain Disposition: HOME / SELF CARE / HOMELESS Condition: GOOD Referrals: NO PCP (PCP) Patient Instructions: Abdominal Pain Additional Instructions: You are seen today in the emergency department for left lower quadrant abdominal discomfort. The CT scan of your abdomen and pelvis did not show any concerning findings. Your lab work did not show any concerning findings that would wa rrant admission to the hospital. You may continue to take Tylenol or ibuprofen [id number] for ongoing abdominal discomfort. Return to the emergency department for worsening symptoms or other concerns. Thank you for visiting our Emergency Department. It was a pleasure taking care of you today in the emergency department and we appreciate you trusting us with your care. If any additional problems come up don't hesitate to return to visit us. Please follow up with your primary care provider so they can plan additional care if needed and know about the problem that you had. If symptoms worsen come back to the Emergency Department. Any concerning symptoms that start such as chest pain, shortness of air, weakness or numbness on one side of the body, running high fevers or any other concerning symptoms return to the ER. EMERGENCY DEPARTMENT GENERAL DISCHARGE INSTRUCTIONS Thank you for coming to [facility] Emergency Department (ED) today and trusting us with you care. We trust that you had a positive experience in our Emergency Department. If you wish to speak to the department management, you may call the Director at [phone]. YOUR FOLLOW UP INSTRUCTIONS ARE FOLLOWS: 1. Do you have a private Doctor? If you do not have a private doctor, please ask for a resource list of physicians or clinics that may be able to assist you with follow up care. 2. The Emergency Physicain has interpreted your x-rays. The X-Ray specialist will also review them. If there is a change in the findings, you will be notified in 48 hours when at all possible. 3. A lab test or culture has been done, your results will be reviewed and you will be notified if you need a change in treatment. ADDITIONAL INSTRUCTIONS AND INFORMATION: 1. Your care today has been supervised by a physician who is specially trained in emergency care. Many problems require more than one evaluation for a complete diagnosis and treatment. We recommend that you schedule your follow up appointment as recommended to ensure complete treatment of you illness or injury. If you are unable to obtain follow up care and continue to have a problem, or if your condition worsens, we recommend that you return to the ED. 2. We are not able to safely determine your condition over the phone nor are we able to give sound medical advice over the phone. For these safety reasons, if you call for medical advice we will ask you to come to the ED for further evaluation. 3. If you have any questions regarding these discharge instructions please call the ED at [phone]. SAFETY INFORMATION: In the interest of safety, wellness, and injury prevention; we encourage you to wear your sealbelt, if you smoke; quite smoking, and we encourage family to use a protective helmet for bicycling and other sporting events that present an increased risk for head injury. IF YOUR SYMPTOMS WORSEN OR NEW SYMPTOMS DEVELOP, OR YOU HAVE CONCERNS ABOUT YOUR CONDITION; OR IF YOUR CONDITION WORSENS WHILE YOU ARE WAITING FOR YOUR FOLLOW UP APPOINTMENT; EITHER CONTACT YOUR PRIMARY CARE DOCTOR, THE PHYSICIAN WHOSE NAME AND NUMBER YOU WERE GIVEN, OR RETURN TO THE ED IMMEDIATELY. ERIKA MCARTHUR APRN Jul 14, 2021 18:48 JUVENAL BRUCE DO Jul 15, 2021 18:06
== END 2021-07-14 19:08 | disposition home or self-care (01) ==
LOC: ER 09:45 → EEVIPCON 09:45 → ER 19:08
DX: R10.32 Left lower quadrant pain (principal)
CPT/HCPCS: 36415; 74176; 80053; 81001; 81025; 83690; 85025; 87086; 96374; 99285; J1885